=== PATIENT | female | born 2000 | race Caucasian/White ===

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

== ENCOUNTER 2018-01-29 10:16 | Emergency (ER) | payer OTHER, MEDICAID ==
[2018-01-29 10:56] VITALS: BP 125/74
--- NOTE | 2018-01-29 10:58 | UC ---
Skin Complaint HPI - HPI Summary HPI Summary: 17 y/o female presents to the urgent care c/o insect bite between her eyebrows she noticed this morning when she woke up. Now is red and painful to touch. Pt w/ HX of MRSA and anxiety. Pain is 8/10 and warm to touch and mildly swollen. Pt has applied warm compresses. She was Dx w/ UTI 2 days ago and Rx Macrobid PO which she started yesterday. Pt has a 3 month old baby at home and she is not breast feeding. Pt denies fever, VIDES, SOB, chest pain, visual disturbances, photophobia, abdominal pain, N/V/D. Pt is UTD w/. all vaccines for her age. - History of Current Complaint Chief Complaint: UCSkin Time Seen by Provider: 01/29/18 10:56 Stated Complaint: POSS BUG BITE Hx Obtained From: Patient Hx Last Menstrual Period: 01/13/18 Onset/Duration: Sudden Onset, Lasting Days - 1 day, Still Present, Worse Since - this morning Skin Exposure Onset/Duration: Days Ago - 1 day Timing: Constant Onset Severity: Mild Current Severity: Moderate Pain Intensity: 8 Pain Scale Used: 0-10 Numeric Location: Discrete - between eyebrows infected insec bite Character: Swelling, Redness, Raised, Painful Aggravating Factor(s): Touch Alleviating Factor(s): Nothing Associated Signs & Symptoms: Positive: Rash, Tenderness. Negative: Fever, Chills, Drainage Related History: Possible Reaction to: Insect - Allergy/Home Medications Allergies/Adverse Reactions: Allergies Allergy/AdvReac Type Severity Reaction Status Date / Time amoxicillin Allergy Intermediate Hives Verified 01/29/18 10:44 Review of Systems Constitutional: Negative Skin: Rash - insect bite between eyebrows Eyes: Negative ENT: Negative Respiratory: Negative Cardiovascular: Negative Gastrointestinal: Negative Genitourinary: Negative Motor: Negative Neurovascular: Negative Musculoskeletal: Negative Neurological: Negative Psychological: Negative Is Patient Immunocompromised?: No All Other Systems Reviewed And Are Negative: Yes PMH/Surg Hx/FS Hx/Imm Hx - Additional Past Medical History Additional PMH: Hx of MRSA Previously Healthy: Yes Other Endocrine History: Gestational DM Psychological History: Anxiety, Depression Other History Of: Negative For: HIV, Hepatitis B, Hepatitis C - Surgical History Surgical History: Yes Surgery Procedure, Year, and Place: TONSILLECTOMY -NOVEMBER 2013. APPENDECTOMY 02/01 - Family History Known Family History: Positive: Hypertension, Diabetes - Social History Occupation: Unemployed Lives: With Family Alcohol Use: None Substance Use Type: None Smoking Status (MU): Never Smoked Tobacco Type: Smokeless Tobacco Amount Used/How Often: daily usage Length of Time of Smoking/Using Tobacco: started at age 14 Have You Smoked in the Last Year: No When Did the Patient Quit Smoking/Using Tobacco: quit chewing tabacco Household Exposure Type: Cigarettes - Immunization History Vaccination Up to Date: Yes Physical Exam - Summary Physical Exam Summary: Vital Signs Reviewed: Yes General: well developed, well nourished female sitting in the examining table w/ o any apparent distress. Eyes: Positive: Conjunctiva Clear - PERRLA, EOMI ENT: Positive: Normal ENT inspection, Hearing grossly normal, Pharynx normal, TMs normal Neck: Positive: Supple, Nontender, No Lymphadenopathy Respiratory: Positive: Chest nontender, Lungs clear, Normal breath sounds Cardiovascular: Positive: RRR, No Murmur, Pulses Normal Abdomen Description: Positive: Nontender, No Organomegaly, Soft. Negative: CVA Tenderness (R), CVA Tenderness (L) Bowel Sounds: Positive: Present Musculoskeletal: Positive: Strength Intact, ROM Intact, No Edema Neurological Exam: Normal Psychological Exam: Normal Skin: Positive: rashes - small erythematous patch w/ indistinct borders, warm to touch between eyebrows w/ central induration and mild crusting s/p insect bite about 0.8cmx 0.6cm in size, swelling and tender to palpation. No drainage observed. Triage Information Reviewed: Yes Vital Signs: Initial Vital Signs Temp 98.5 F 01/29/18 10:50 Pulse 96 01/29/18 10:50 Resp 18 01/29/18 10:50 BP 125/74 01/29/18 10:50 Pulse Ox 99 01/29/18 10:50 Course/Dx - Course Course Of Treatment: 17 y/o female presents to the urgent care c/o insect bite between her eyebrows she noticed this morning when she woke up. Now is red and painful to touch. Pt w/ HX of MRSA and anxiety. Pain is 8/10 and warm to touch and mildly swollen. Pt has applied warm compresses. She was Dx w/ UTI 2 days ago and Rx Macrobid PO which she started yesterday. Pt has a 3 month old baby at home and she is not breast feeding. Pt denies fever, VIDES, SOB, chest pain, visual disturbances, photophobia, abdominal pain, N/V/D. Pt is UTD w/. all vaccines for her age.Hx obtained. Pt w/ small erythematous patch w/ indistinct borders, warm to touch between eyebrows w/ central induration and mild crusting s/p insect bite about 0.8cmx 0.6cm in size, swelling and tender to palpation. No drainage observed on examination. PT w/ mild Cellulitis of forehead s/p insect bite. Pt Rx Bactrim PO since Hx of MRSA and advised to stop taking Macrobid PO, Also advised to applied topical Bacitracin. Advised if rash doubles in size and if she develops fever to go to the ER for further treatment. [place] hand washing since she has a baby at home to avoid spread. D /C instructions explained. Pt understood and agreed w/ plan of care. - Differential Diagnoses - Skin Complaint Differential Diagnoses: Abscess, Cellulitis, MRSA, Tick Born Illness, Other - insect bite, bee sting - Diagnoses Provider Diagnoses: 1- Forehead cellulitis s/p insect bite Discharge - Sign-Out/Discharge Documenting (check all that apply): Discharge/Admit/Transfer - D/C home - Discharge Plan Condition: Stable Disposition: HOME Prescriptions: Bacitracin OINTMENT* 1 applic TOPICAL BID #1 tube Sulfamethox/Trimethoprim DS* [Bactrim DS 800/160 TAB*] 1 tab PO BID #20 tab Patient Education Materials: Cellulitis (ED), Insect Bite or Sting (ED) Referrals: Jody Mena MD [Primary Care Provider] - 3 Days Additional Instructions: 1-Please stop taking the Macrobid PO for your UTI and start taking Bactrim PO and take full course of Antibiotic. Apply Bacitracin oint as directed on affected area. apply warm compresses in the area 2- If redness and swelling doubles in size beyond what was demarcated after 48 hrs of taking antibiotic and fever develops please go to the ER immediately. 3- Encourage hand washing to avoid spread. 4-Please F/u with your PCP in 2 days for further evaluation and treatment. - Billing Disposition and Condition Condition: STABLE Disposition: Home
== END 2018-01-29 11:30 | disposition home or self-care (01) ==
LOC: UCCORT 10:16
DX: S00.86XA Insect bite (nonvenomous) of other part of head, initial encounter (principal); W57.XXXA Bitten or stung by nonvenomous insect and other nonvenomous arthropods, initial encounter; Z88.0 Allergy status to penicillin; Y92.9 Unspecified place or not applicable
CPT/HCPCS: 99212; G0463

== ENCOUNTER 2018-04-06 10:58 | Emergency (ER) | payer OTHER ==
[2018-04-06 11:22] VITALS: BP 130/74
--- NOTE | 2018-04-06 11:27 | UC ---
UC General HPI - HPI Summary HPI Summary: cough, congestion since last pm. had a streak og blood in sputum. no cp, sob or fever. - History of Current Complaint Chief Complaint: UCRespiratory Stated Complaint: COUGH/SINUSCOMPLAINT Time Seen by Provider: 04/06/18 11:10 Hx Obtained From: Patient Hx Last Menstrual Period: 01/13/18 Onset/Duration: Gradual Onset Timing: Constant Aggravating: nothing Associated Signs & Symptoms: Positive: Cough - Allergy/Home Medications Allergies/Adverse Reactions: Allergies Allergy/AdvReac Type Severity Reaction Status Date / Time amoxicillin Allergy Intermediate Hives Verified 04/06/18 11:11 Home Medications: Home Medications Naproxen TAB* [Naprosyn 250 mg TAB*] 1 tab BID PRN 04/06/18 [History Confirmed 04/06/18] lamoTRIgine TAB(*) [Lamictal TAB(*)] 200 mg DAILY 04/06/18 [History Confirmed ] PMH/Surg Hx/FS Hx/Imm Hx Psychological History: Anxiety, Depression, Bipolar Disorder Other History Of: Negative For: HIV, Hepatitis B, Hepatitis C - Surgical History Surgical History: Yes Surgery Procedure, Year, and Place: TONSILLECTOMY -NOVEMBER 2013. APPENDECTOMY 02/01 - Family History Known Family History: Positive: None, Hypertension, Diabetes - Social History Occupation: Employed Full-time Lives: With Family Alcohol Use: None Substance Use Type: None Smoking Status (MU): Never Smoked Tobacco Type: Smokeless Tobacco Amount Used/How Often: daily usage Length of Time of Smoking/Using Tobacco: started at age 14 Have You Smoked in the Last Year: No When Did the Patient Quit Smoking/Using Tobacco: quit chewing tabacco Household Exposure Type: Cigarettes - Immunization History Vaccination Up to Date: Yes Review of Systems Constitutional: Negative Skin: Negative Eyes: Negative ENT: Negative Respiratory: Cough Cardiovascular: Negative Gastrointestinal: Negative Genitourinary: Negative Motor: Negative Neurovascular: Negative Musculoskeletal: Negative Neurological: Negative Psychological: Negative Is Patient Immunocompromised?: No All Other Systems Reviewed And Are Negative: Yes Physical Exam Triage Information Reviewed: Yes Appearance: Well-Appearing Vital Signs Reviewed: Yes Eyes: Positive: Conjunctiva Clear ENT: Positive: Pharynx normal, TMs normal. Negative: Nasal congestion, Nasal drainage Neck: Positive: Supple, Nontender, No Lymphadenopathy Respiratory: Positive: Lungs clear, Normal breath sounds, No respiratory distress Cardiovascular: Positive: RRR, No Murmur Abdomen Description: Positive: Nontender, No Organomegaly, Soft Bowel Sounds: Positive: Present Musculoskeletal: Positive: ROM Intact Neurological: Positive: Alert Psychological: Positive: Age Appropriate Behavior Skin Exam: Normal Course/Dx - Course Course Of Treatment: nothing to suggest pneumonia - Differential Dx - Multi-Symptom Provider Diagnoses: bronchitis Discharge - Sign-Out/Discharge Documenting (check all that apply): Patient Departure - Discharge Plan Condition: Stable Disposition: HOME Patient Education Materials: Acute Bronchitis (ED) Forms: *Work Release Referrals: Jody Mena MD [Primary Care Provider] - 7 Days - Billing Disposition and Condition Condition: STABLE Disposition: Home
== END 2018-04-06 11:41 | disposition home or self-care (01) ==
LOC: UCCORT 10:58
DX: J40 Bronchitis, not specified as acute or chronic (principal); F17.210 Nicotine dependence, cigarettes, uncomplicated; Z87.891 Personal history of nicotine dependence; Z88.1 Allergy status to other antibiotic agents
CPT/HCPCS: 99211; G0463

== ENCOUNTER 2018-05-15 11:56 | Emergency (ER) | payer OTHER ==
--- OUTSIDE RECORDS SUMMARY | 2018-05-15 12:10 | XMS REPORT ---
:2000 External Reference #:[id number] Author Organization [facility] 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 Jody Mena MD Primary Care Physician Unavailable Payers Type Date Identification Numbers Payment Provider Subscriber Commercial Policy Number: [id number] [place] [employer] Bernard Boothe PayID: [id number] [address] [place] [address] Medicaid Expires: 2018 Group Name: [facility] 35 Medicaid Sukhjinder Boothe PayID: [id number] [address] [place] [address] Problems Date Description Provider Status Onset: 04/17/2018 Heartburn Rehan Hodge MD Active Onset: 04/17/2018 Digestive symptom Rehan Hodge MD Active Onset: 04/17/2018 Abdominal pain Rehan Hodge MD Active Family History Date Family Member(s) Problem(s) Comments General Non Contributory Social History Type Date Description Comments Marital Status Single Home Environment Lives With parents 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 Smokeless Tobacco Current Smokeless Tobacco User, Uses 3 Times Daily ETOH Use Denies alcohol use Smoking Patient has never smoked Recreational Drug Use Denies Drug Use Daily Caffeine Consumes on average 5 cups of regular coffee per day Allergies, Adverse Reactions, Alerts Date Description Reaction Status Severity Comments 04/08/2018 Amoxicillin active 02/02/2014 NKDA inactive Medications Medication Date Status Form Strength Qnty SIG Indications Ordering Provider Omeprazole 04/17/ Active Capsules 20mg 90caps 1 tab by R11.[address], MD every day every morning Dicyclomine HCL 04/17/ Active Capsules 10mg 30caps 1 cap by R10.9 Rehan Hodge, 2018 mouth MD three times a day as needed Lamotrigine ER / Active Tablets ER 200mg 1 po Unknown 0000 24HR daily Depo-Provera / Hx 1 dose im Unknown Contraceptive 0000 - x once q month 2017 Ranitidine 150 / Hx Tablets 150mg 1 by Unknown Maximum Strength 0000 - mouth bid 2017 Ondansetron HCL / Hx Tablets 8mg take 1 Unknown 0000 - tablet by 2018 every 8 hours as needed for nausea Benzamycin / Hx Gel 5-3% A/D Unknown 0000 - 2017 Vital Signs Date Vital Result Comment 04/17/2018 BP Systolic Sitting Left Arm 112 mmHg BP Diastolic Sitting Left Arm 78 mmHg Heart Rate 100 /min Respiratory Rate 16 /min Height 59 inches 4'11" Weight 188.00 lb BMI (Body Mass Index) 38.0 kg/m2 BSA (Body Surface Area) 1.80 m2 Jones body weight in kilograms 45 Results Test Date Test Result H/L Range Note Basic Metabolic Panel 04/17/2018 Glucose 73 mg/dL Low 74-106 BUN 8 mg/dL 7-18 Creatinine 0.6 mg/dL 0.6-1.3 Glom Filtration Rate, Estimate >60 mL/min >60 If >60 mL/min >60 1 BUN/Creat 13.3 ratio Sodium 138 mmol/L 136-145 Potassium 4.1 mmol/L 3.5-5.1 Chloride 107 mmol/L 98-107 Carbon Dioxide 24 mmol/L 21-32 Anion Gap 7 mEq/L Low 8-16 Calcium 8.9 mg/dL 8.5-10.1 Reflex add FT3? N Reflex add FT4? Y Laboratory test finding 04/17/2018 Sedimentation Rate 16 mm/hr 0-20 2 TSH Reflex FT4 And/Or FT3 04/17/2018 Thyroid Stim Hormone 2.20 uIU/mL 0.30-4.20 Reflex add FT3? N Reflex add FT4? Y C-Reactive Protein,Quant 04/17/2018 C-Reactive Protein,Quant 4.8 mg/L High <3.0 Reflex add FT3? N Reflex add FT4? Y Ua RFX Micro & Culture II 10/13/2017 Urine Color STRAW Yellow 3 Urine Clarity SL CLOUDY Clear 3 Urine Glucose - Dipstick NEGATIVE mg/dL Negative 3 Urine Bilirubin - Dipstick NEGATIVE Negative 3 Urine Ketone NEGATIVE mg/dL Negative 3 Urine Specific Franklin 1.010 1.010-1.030 3 Urine Blood NEGATIVE Negative 3 Urine PH 7.0 6.5-7.5 3 Urine Protein - Dipstick NEGATIVE mg/dL Negative 3 Urine Urobilinogen - Dipstick 0.2 E.U./dL 0.2-1.0 3 Urine Nitrite - Dipstick NEGATIVE Negative 3 Urine Leuk Esterase SMALL Negative 3 Urine RBC NONE SEEN rbc/hpf 0-2 3 Urine WBC 0-2 wbc/hpf 0-7 3 Urine Epithelial Cells MANY /lpf None Seen 3, 4 Urine Bacteria FEW None Seen 3 Source: URINE, CLEAN CAT <SEE NOTE> 3, 5 Urine Culture 10/13/2017 Urine Culture URETHRAL CHARAN 3 Quantity > 100,000 CFU/mL 3, 6 Ua RFX Micro & Culture II 09/15/2017 Urine Color YELLOW Yellow 7 Urine Clarity CLEAR Clear 7 Urine Glucose - Dipstick NEGATIVE mg/dL Negative 7 Urine Bilirubin - Dipstick NEGATIVE Negative 7 Urine Ketone NEGATIVE mg/dL Negative 7 Urine Specific Franklin 1.010 1.010-1.030 7 Urine Blood NEGATIVE Negative 7 Urine PH 6.0 Low 6.5-7.5 7 Urine Protein - Dipstick TRACE mg/dL Negative 7 Urine Urobilinogen - Dipstick 0.2 E.U./dL 0.2-1.0 7 Urine Nitrite - Dipstick NEGATIVE Negative 7 Urine Leuk Esterase TRACE Negative 7 Urine RBC 0-2 rbc/hpf 0-2 7 Urine WBC 2-5 wbc/hpf 0-7 7 Urine Epithelial Cells MODERATE /lpf None Seen 7, 8 Urine Bacteria FEW None Seen 7 Source: URINE, CLEAN CAT <SEE NOTE> 7, 9 Genital Culture W/ Gram 09/15/2017 Gram Stain GRAM STAIN INDIC <SEE 7, 10 Stain NOTE> Gram Stain MODERATE GR POS. <SEE NOTE> 7, 11 Gram Stain RARE WHITE BLOOD <SEE NOTE> 7, 12 Genital Culture GENITAL CHARAN 7 Urine Culture And Sensitivities 05/25/2014 Urine Culture (See Note) 13 Laboratory test finding 02/13/2014 Bas% 0.3 % 0.0-1.1 Baso # 0.05 K/uL 0.0-0.1 Eo% 0.4 % 0.0-6.6 Eos # 0.07 K/uL 0.0-0.5 Hematocrit 36.8 % 36.0-46.0 Hemoglobin 12.3 gm/dL 12.0-16.0 Lymph # 2.93 K/uL 0.8-3.4 Lymph % 18.5 % 17.0-46.1 Mean Cell Volume 92.2 fl 77.0-95.0 Mean Corpuscular HGB 30.8 pg High 25.0-30.0 Mean Corpuscular HGB Conc 33.4 g/dL 30.8-34.3 Mean Platelet Volume 9.8 fL 8.9-12.4 [place] # 1.05 K/uL High 0.0-0.6 [place] % 6.6 % 4.3-13.2 Neut# 11.78 K/uL High 1.0-7.0 Neut% 74.2 % High 28.0-68.0 Platelet Count 303 K/uL 155-360 Red Blood Count 3.99 M/uL Low 4.10-5.10 Red Cell Distri Width %CV 12.2 % 11.7-14.4 Red Cell Distri Width SD 40.4 fl 3-47 White Blood Count 15.9 K/uL High 4.5-13.5 Basic Metabolic Panel 02/13/2014 Anion Gap 12 mEq/L 8-16 BUN 11 mg/dL 5-23 BUN/Creat 15.7 ratio Calcium 9.4 mg/dL 8.5-10.1 Carbon Dioxide 23 mEq/L 18-29 Chloride 108 mmol/L High 98-107 Creatinine 0.7 mg/dL 0.5-1.4 Glom Filtration Rate, Estimate >60 mL/min Glucose 90 mg/dL 76-115 If >60 mL/min Potassium 3.6 mmol/L 3.5-5.1 Sodium 139 mmol/L 136-145 CBC Auto Diff 02/13/2014 Abs Basophils 0.1 10^3/uL 0-0.2 Abs Eosinophils 0.1 10^3/uL 0-0.6 Abs Lymphocytes 2.3 10^3/uL 1.0-4.8 Abs Monocytes 1.0 10^3/uL High 0-0.8 Abs Neutrophils 11.1 10^3/uL High 1.5-7.7 Abs Nucleated RBC 0.01 10^3/uL Basophil % 0.6 % 0-2 Eosinophil % 0.5 % 0-6 Granulocyte % 76.0 % 38-83 Hematocrit 35 % 35-47 Hemoglobin 12.0 g/dL 12.0-16.0 Lymphocyte % 16.0 % Low 25-47 Mean Corpuscular HGB Conc 34 g/dL 31-36 Mean Corpuscular Hemoglobin 31 pg 27-31 Mean Corpuscular Volume 91 fL 80-97 Mean Platelet Volume 8 um3 7.4-10.4 Monocyte % 6.9 % 1-9 Nucleated Red Blood Cells % 0 Platelet Count 282 10^3/uL 150-450 Red Blood Count 3.90 10^6/uL Low 4.0-5.4 Red Cell Distribution Width 13 % 10.5-15 White Blood Count 14.6 10^3/uL High 4.8-10.8 Laboratory test finding 02/01/2014 Appendix Inflammation See Note 14 Laboratory test finding 02/01/2014 Urine HCG (Qualitative) See Note 15 Urine Screen 02/01/2014 Urine Bilirubin - Dipstick Negative Negative Urine Blood Trace Negative Urine Clarity Clear Clear Urine Color Yellow Yellow Urine Glucose - Dipstick Negative mg/dL Negative Urine Ketone Trace mg/dL High Negative Urine Leuk Esterase Negative Negative Urine Nitrite - Dipstick Negative Negative Urine PH 6.0 Low 6.5-7.5 Urine Protein - Dipstick Negative mg/dL Negative Urine Specific Franklin 1.020 1.010-1.030 Urine Urobilinogen - Dipstick 0.2 E.U./dL 0.2-1.0 Chlamydia/GC Maria L, Urine 02/01/2014 Chlamydia Trachomatis,Ur Negative Negative -Maria L Neisseria Gonorrhoeae,Ur -Maria L Negative Negative Urine note: See Note 16 Laboratory test finding 02/01/2014 Bas% 0.2 % 0.0-1.1 Baso # 0.04 K/uL 0.0-0.1 Eo% 0.2 % 0.0-6.6 Eos # 0.03 K/uL 0.0-0.5 HCG Serum, Qualitative Negative Hematocrit 40.5 % 36.0-46.0 Hemoglobin 13.7 gm/dL 12.0-16.0 Lymph # 1.28 K/uL 0.8-3.4 Lymph % 7.6 % Low 17.0-46.1 Mean Cell Volume 92.5 fl 77.0-95.0 Mean Corpuscular HGB 31.3 pg High 25.0-30.0 Mean Corpuscular HGB Conc 33.8 g/dL 30.8-34.3 Mean Platelet Volume 10.9 fL 8.9-12.4 [place] # 1.07 K/uL High 0.0-0.6 [place] % 6.3 % 4.3-13.2 Neut# 14.53 K/uL High 1.0-7.0 Neut% 85.7 % High 28.0-68.0 Platelet Count 242 K/uL 155-360 Red Blood Count 4.38 M/uL 4.10-5.10 Red Cell Distri Width %CV 12.6 % 11.7-14.4 Red Cell Distri Width SD 41.7 fl 3-47 White Blood Count 17.0 K/uL High 4.5-13.5 Comprehensive Metabolic Panel 02/01/2014 Alb/Glob 1.1 ratio Albumin 4.2 g/dL 3.5-5.0 Alkaline Phosphatase 84 U/L 50-136 Anion Gap 12 mEq/L 8-16 BUN 9 mg/dL 5-23 BUN/Creat 15.0 ratio Bilirubin,Total 0.4 mg/dL 0.2-1.2 Calcium 9.3 mg/dL 8.5-10.1 Carbon Dioxide 22 mEq/L 18-29 Chloride 105 mmol/L 98-107 Creatinine 0.6 mg/dL 0.5-1.4 Globulin 3.8 g/dL 1.9-4.3 Glom Filtration Rate, Estimate >60 mL/min Glucose 77 mg/dL 76-115 If >60 mL/min Potassium 3.7 mmol/L 3.5-5.1 SGPT/Alt 23 U/L Low 30-65 Sgot/Ast 19 U/L 16-40 Sodium 135 mmol/L Low 136-145 Total Protein 8.0 g/dL 6.3-8.0 Urine Culture And Sensitivities 11/04/2013 Urine Culture (See Note) 17 C Trach/N Gonorr Patient <16 11/04/2013 C trachomatis Source [facility] Chlamydia trachomatis Rna Negative Negative N. gonorrhoeae Source [facility] Neisseria Gonorrhoeae Rna Negative Negative 18 Affirm Vaginal Dna Probe 11/04/2013 Affirm Vaginal Dna Probe (See Note) 19 Herpes Simplex PCR 11/04/2013 HSV 1 PCR Negative Negative HSV 2 PCR Negative Negative 20 Herpes Source Labia Urine Screen 10/01/2013 Urine Bilirubin - Dipstick Negative Negative Urine Blood Negative Negative Urine Clarity Clear Clear Urine Color Yellow Yellow Urine Glucose - Dipstick Negative mg/dL Negative Urine Ketone Negative mg/dL Negative Urine Leuk Esterase Negative Negative Urine Nitrite - Dipstick Negative Negative Urine PH 6.0 Low 6.5-7.5 Urine Protein - Dipstick Negative mg/dL Negative Urine Specific Franklin 1.020 1.010-1.030 Urine Urobilinogen - Dipstick 0.2 E.U./dL 0.2-1.0 Laboratory test finding 10/01/2013 Urine HCG (Qualitative) Negative Negative 21 Comprehensive Metabolic 07/07/2013 Alb/Glob 1.1 ratio Panel Albumin 4.1 g/dL 3.5-5.0 Alkaline Phosphatase 59 U/L 50-136 Anion Gap 11 mEq/L 8-16 BUN 12 mg/dL 5-23 BUN/Creat 17.1 ratio Bilirubin,Total 0.1 mg/dL Low 0.2-1.2 Calcium 8.9 mg/dL 8.5-10.1 Carbon Dioxide 24 mEq/L 18-29 Chloride 109 mmol/L High 98-107 Creatinine 0.7 mg/dL 0.5-1.4 Globulin 3.6 g/dL 1.9-4.3 Glom Filtration Rate, Estimate >60 mL/min Glucose 87 mg/dL 76-115 If >60 mL/min Potassium 3.6 mmol/L 3.5-5.1 SGPT/Alt 23 U/L Low 30-65 Sgot/Ast 15 U/L Low 16-40 Sodium 140 mmol/L 136-145 Total Protein 7.7 g/dL 6.3-8.0 Urine Screen 07/07/2013 Urine Bilirubin - Dipstick Negative Negative Urine Blood Negative Negative Urine Clarity Clear Clear Urine Color Yellow Yellow Urine Glucose - Dipstick Negative mg/dL Negative Urine Ketone Negative mg/dL Negative Urine Leuk Esterase Negative Negative Urine Nitrite - Dipstick Negative Negative Urine PH 6.0 Low 6.5-7.5 Urine Protein - Dipstick Negative mg/dL Negative Urine Specific Franklin 1.010 1.010-1.030 Urine Urobilinogen - Dipstick 0.2 E.U./dL 0.2-1.0 Laboratory test finding 07/07/2013 Amphetamines (Urine) Negative Barbiturates (Urine) Negative Benzodiazepines (Urine) Negative Cannabinoids (Urine) Negative Cocaine Metabolite (Urine) Negative Methadone (Urine) Negative Opiates (Urine) Negative Urine Cutoffs * 22 Laboratory test finding 07/07/2013 Bas% 1.1 % 0.0-1.1 Baso # 0.10 K/uL 0.0-0.1 Eo% 4.4 % 0.0-6.6 Eos # 0.42 K/uL 0.0-0.5 Hematocrit 36.7 % 36.0-46.0 Hemoglobin 12.3 gm/dL 12.0-16.0 Lymph # 3.54 K/uL High 0.8-3.4 Lymph % 37.4 % 17.0-46.1 Mean Cell Volume 92.9 fl 77.0-95.0 Mean Corpuscular HGB 31.1 pg High 25.0-30.0 Mean Corpuscular HGB Conc 33.5 g/dL 30.8-34.3 Mean Platelet Volume 10.2 fL 8.9-12.4 [place] # 0.71 K/uL High 0.0-0.6 [place] % 7.5 % 4.3-13.2 Neut# 4.69 K/uL 1.0-7.0 Neut% 49.6 % 28.0-68.0 Platelet Count 298 K/uL 155-360 Red Blood Count 3.95 M/uL Low 4.10-5.10 Red Cell Distri Width %CV 12.4 % 11.7-14.4 Red Cell Distri Width SD 40.9 fl 3-47 Thyroid Stim Hormone 2.30 uIU/mL 0.49-4.67 Urine HCG (Qualitative) Negative Negative 23 White Blood Count 9.5 K/uL 4.5-13.5 Laboratory test finding 05/25/2013 Culture If Indicated Comment See Note 24 Urine Culture See Note 25 Urine HCG (Qualitative) Negative Negative 26 Urine Screen See Note 27 Urinalysis With Microscopic 05/25/2013 Urine Bacteria Few None Seen Urine Bilirubin - Dipstick Negative Negative Urine Blood Moderate High Negative Urine Clarity Clear Clear Urine Color DK Yellow Yellow Urine Epithelial Cells Very Few None Seen /lpf Urine Glucose - Dipstick 100 mg/dL High Negative Urine Ketone Negative mg/dL Negative Urine Leuk Esterase Moderate High Negative Urine Nitrite - Dipstick Positive High Negative Urine PH 7.0 6.5-7.5 Urine Protein - Dipstick Negative mg/dL Negative Urine RBC 0-2 rbc/hpf 0-7 Urine Specific Franklin <=1.005 Low 1.010-1.030 Urine Urobilinogen - Dipstick 1.0 E.U./dL 0.2-1.0 Urine WBC 0-2 wbc/hpf 0-7 Laboratory test finding 05/24/2013 Urine HCG (Qualitative) Negative Negative 28 Urine Screen See Note 29 Urinalysis With Microscopic 05/24/2013 Urine Bacteria Very Few None Seen Urine Bilirubin - Dipstick Negative Negative Urine Blood Negative Negative Urine Clarity Clear Clear Urine Color Yellow Yellow Urine Epithelial Cells Moderate None Seen /lpf 30 Urine Glucose - Dipstick Negative mg/dL Negative Urine Ketone Negative mg/dL Negative Urine Leuk Esterase Small High Negative Urine Nitrite - Dipstick Negative Negative Urine PH 6.0 Low 6.5-7.5 Urine Protein - Dipstick Negative mg/dL Negative Urine RBC None Seen rbc/hpf 0-7 Urine Specific Franklin 1.025 1.010-1.030 Urine Urobilinogen - Dipstick 0.2 E.U./dL 0.2-1.0 Urine WBC 0-2 wbc/hpf 0-7 Urine Culture And 05/24/2013 Urine Culture (See Note) 31 Sensitivities Urine Screen 07/28/2012 Urine Bilirubin - Negative Negative Dipstick Urine Blood Trace Negative Urine Clarity SL Cloudy Clear Urine Color Yellow Yellow Urine Glucose - Dipstick Negative mg/dL Negative Urine Ketone Negative mg/dL Negative Urine Leuk Esterase Negative Negative Urine Nitrite - Dipstick Negative Negative Urine PH 5.5 Low 6.5-7.5 Urine Protein - Dipstick Negative mg/dL Negative Urine Specific Franklin >=1.030 1.010-1.030 Urine Urobilinogen - Dipstick 0.2 E.U./dL 0.2-1.0 1 Note: Persistent reduction for 3 months or more in an eGFR <60 mL/min/1.73 m2 defines CKD. Patients with eGFR values >/=60 mL/min/1.73 m2 may also have CKD if evidence of persistent proteinuria is present. The original MDRD equation for estimated GFR is not valid for patients less than 18 years of age. Additional information may be found at www.kdoqi.org. 2 Method: Sediplast Modified Westergren 3 BABY IN DISTRESS 4 POSSIBLE UROGENITAL CONTAMINATION. 5 URINE, CLEAN CATCH 6 > 100,000 CFU/mL 7 31 WEEKS, ABD PAIN, DISCHARGE 8 POSSIBLE UROGENITAL CONTAMINATION. 9 URINE, CLEAN CATCH 10 GRAM STAIN INDICATES NORMAL GENITAL CHARAN 11 MODERATE GR POS. BACILLI SUGGESTIVE OF LACTOBACILLUS SP. 12 RARE WHITE BLOOD CELLS 13 RUN DATE: 05/27/14 [facility] LAB LIVE PAGE 1 RUN TIME: [address] [place] [address] Specimen Inquiry ----- Name: BERNARD BOOTHE : [address]: Kurtis Baig MD Acct: [id number] Unit: [id number] AGE: 14 Location: [facility] Re05/25/14 SEX: F Status: DEP ER ----- SPEC: [id number] CARLI: 05/25/14 [facility] DR: Kurtis Baig MD REQ: [id number] RECD: 05/25/144 STATUS: CRAIG ROCHE DR: Patricia Cazares MD _ SOURCE: URINE SPDESC: ORDERED: Urine Culture ----- Procedure Result Verified Site ----- Urine Culture Final 05/27/14-1031 ML Organism 1 NORMAL CHARAN [place] Count 1-10,000 (Few) CFU/ML ----- END OF REPORT * ML=Testing performed at Main Lab DEPARTMENT OF PATHOLOGY, [address] [place] [address] Teto Gabriel M.D. Director [facility] # [id number] OPERATION/PROCEDURE Lap. appendectomy DIAGNOSIS: FINAL REPORT, INTERNAL REVIEW COMPLETED "APPENDIX, APPENDECTOMY": ACUTE APPENDICITIS, EARLY. BEAL/EDWARD/josh GROSS Received in formalin labeled, "APPENDIX" is a 3.8 cm. vermiform appendix with a diameter up to 0.5 cm. The serosal surface of the appendix is focally congested without evidence of purulent exudate. The mesoappendix measures up to 1.4 cm. in width and 4.8 cm. in thickness. Upon further sectioning the lumen contains focal hemorrhagic material. No fecalith nor tumor is seen. Submitted in toto in one block. BELA/josh MICROSCOPIC Sections reveal sheets of luminal neutrophils focally eroding into the epithelium of the terminal appendix, without evidence of perforation. Lymphoid follicles are hypertrophied. The serosal vessels are congested without an exudate. PRE OPERATIVE DIAGNOSIS [facility] pain REVIEW CODE CODE: I Signed Electronically signed REJI LEMUS MD [id number] Electronically signed REGGIE LUBIN MD 02/06/14 3417 15 02/01/14 LAB.TOW PER [facility] REQ 16 Acceptable specimens for this test are male urethral swab, endocervical swab and liquid based pap specimens, vaginal swabs in APTIMA transports and first void urine. See online Directory of Services for test number for rectal and pharyngeal specimens. Performed at: RN - [facility] [address] [id number] Glue Spreader: Sheyla Barrera MD, Phone: [phone] RUN DATE: 11/07/13 [facility] LAB LIVE PAGE 1 RUN TIME: [address] [place] [address] Specimen Inquiry ----- Name: BERNARD BOOTHE DOB: [address]: Karla Triana MD Acct: [id number] Unit: [id number] AGE: 13 Location: [facility] Re11/04/13 SEX: F Status: DEP ER ----- SPEC: [id number] CARLI: 11/04/13-[address]: Karla Triana MD REQ: [id number] RECD: 11/05/13 STATUS: CRAIG ROCHE DR: Patricia Cazares MD _ SOURCE: URINE SPDESC: ORDERED: Urine Culture ----- Procedure Result Verified Site ----- Urine Culture Final 11/07/13-924 ML Organism 1 NORMAL CHARAN [place] Count 10-25,000 (Moderate) CFU/ML ----- END OF REPORT * ML=Testing performed at Main Lab DEPARTMENT OF PATHOLOGY, [facility] [employer] [place], [place] [address] Teto Gabriel M.D. Director [facility] Permit # [id number] 18 Test Performed by: [address] [address] Household Chores: Jagdish Engel III, M.D. RUN DATE: 11/05/13 [facility] LAB LIVE PAGE 1 RUN TIME: [address] [facility] [employer] [place], [place] [address] Specimen Inquiry ----- Name: BERNARD BOOTHE : [address]: Karla Triana MD Acct: [id number] Unit: [id number] AGE: 13 Location: [facility] Re11/04/13 SEX: F Status: DEP ER ----- SPEC: [id number] CARLI: 11/04/13-2029 [facility] DR: Karla Triana MD REQ: [id number] RECD: 11/05/13 STATUS: COMP OTHR DR: Patricia Cazares MD _ SOURCE: VAGINAL SPDESC: ORDERED: Affirm ----- Procedure Result Verified Site ----- Affirm Vaginal DNA Probe Final 11/05/13-1238 ML Organism 1 Negative Trichomonas Organism 2 Negative Gardnerella Organism 3 Negative Radha The presence of G. vaginalis, although suggestive, is not diagnostic for bacterial vaginosis. Results should be interpreted in conjunction with other clinical and laboratory data available. Women with vaginal discharge should be evaluated for risk factors of cervicitis and pelvic inflammatory disease, toxic shock syndrome (S.aureus), and if present, evaluated for organisms not included in this assay such as N. gonorrhoeae, C. trachomatis, Mobiluncus, Mycoplasma and/or Prevotella. Mixed infections may occur. The performance of this test on patient specimens collected during or immediately after antimicrobial therapy is unknown. The presence or absence of Radha species, G. vaginalis or T. vaginalis cannot be used as a test for therapeutic success or failure. ----- END OF REPORT * ML=Testing performed at Main Lab DEPARTMENT OF PATHOLOGY, [address] [place] [address] Teto Gabriel M.D. Director [facility] Permit # [id number] 20 Analyte Specific Reagent: This test was developed and its performance characteristics determined by [facility]. It has not been cleared or approved by the U.S. Food and Drug Administration. Test Performed by: [facility] - [address] [address] Household Chores: Jagdish Engel III, M.D. 21 FIRST MORNING SPECIMENS GENERALLY CONTAIN THE HIGHEST CONCENTRATION OF HCG AND ARE RECOMMENDED FOR EARLY DETECTION OF . 22 *THE SUBMITTED URINE SPECIMEN WAS SCREENED AT THE LISTED [facility] CLASS INITIAL TEST LEVEL Amphetamines 1000 ng/mL Barbiturates 200 ng/mL Benzodiazepines 200 ng/mL Cannabinoids 50 ng/mL Cocaine Metabolite 300 ng/mL Methadone 300 ng /mL Opiates 300 ng/mL 23 FIRST MORNING SPECIMENS GENERALLY CONTAIN THE HIGHEST CONCENTRATION OF HCG AND ARE RECOMMENDED FOR EARLY DETECTION OF . 24 CULTURE TO FOLLOW 25 COLONY COUNT ! 10,000 - 20,000 CFU/ml Organism 1 ! MIXED URETHRAL CHARAN 26 FIRST MORNING SPECIMENS GENERALLY CONTAIN THE HIGHEST CONCENTRATION OF HCG AND ARE RECOMMENDED FOR EARLY DETECTION OF . 27 05/25/13 LAB.DWM Deleted by Reflex Group UACOM 28 FIRST MORNING SPECIMENS GENERALLY CONTAIN THE HIGHEST CONCENTRATION OF HCG AND ARE RECOMMENDED FOR EARLY DETECTION OF . 29 05/24/13 LAB.EMM1 Deleted by Reflex Group UACOM 30 POSSIBLE UROGENITAL CONTAMINATION. 31 RUN DATE: 05/26/13 [facility] LAB LIVE PAGE 1 RUN TIME: 1025 [address] [place], [place] [address] Specimen Inquiry ----- Name: BERNARD BOOTHE : [address]: Magdalena Miner Acct: [id number] Unit: [id number] AGE: 13 Location: [facility] Re05/24/13 SEX: F Status: DEP ER ----- SPEC: [id number] CARLI: 05/24/13-1120 [facility] DR: Magdalena Paiz DO REQ: [id number] RECD: 05/24/13 STATUS: CRAIG ROCHE DR: NEEL Cazares MD _ SOURCE: URINE [facility]: ORDERED: Urine Culture ----- Procedure Result Verified Site ----- Urine Culture Final 05/26/13-1024 ML Organism 1 NORMAL CHARAN [place] Count 10-25,000 (Moderate) CFU/ML ----- END OF REPORT * ML=Testing performed at Main Lab DEPARTMENT OF PATHOLOGY, [address] [place] [address] Teto Gabriel M.D. Director [facility] Permit # [id number] Procedures Date CPT Code Description Status 02/01/2014 58193 Laparoscopy, surgical, appendectomy Completed 02/01/2014 20401 Anesthesia, Lower Abdomen Surgery Not Otherwise Spec Completed 12/09/2013 00497 Anesthesia, Intraoral Surgery Not Otherwise Spec Completed Encounters Type Date Location Provider CPT E/M Dx Office Visit 04/17/2018 10:00[place] [address] R10.9 R19.4 R11.2 R12 Office Visit 02/01/2014 5:27p [place] [address] 540.9 Plan of Care Future Appointment(s):05/15/2018 1:00 pm - Rehan Hodge MD at GI04/17/2018 - Rehan Hodge MDR10.9 Unspecified abdominal painNew Medication:Dicyclomine HCL 10 mgNew Labs:Porphobilinogen,QN,Random UrinC1 Esterase Inhibitor FunctionC1 Esterase InhibitorComplement C4, SerumNew Xrays:CT, Abdomen & Pelvis W ContrastComments:Her non-enhanced CT scan was equivocal - possible adhesions related to prior exploratory laparascopywith appendectomy and with recurrent UTIs - ? [employer] issuesReferral to Dr Castro up:F/U in 1 [id number] Change in bowel habitNew Labs:Sedimentation RateCeliac Disease Comp AB ProfileTSH Reflex FT4 And/Or HU0Setjc CultureOva & Parasite Antigen ScreenFecal Fat, QualitativeStool Elastase PancreaticC-Reactive Protein,QuantC. Difficile Toxin B By PCRLactoferrin5-Hiaa,Quant 24 HR UrineComments:Probiotics and Metamucil recommended to the pt Colonoscopy will be [id number] Nausea with vomiting, unspecifiedNew Medication:Omeprazole 20 mgR12 HeartburnComments: Omeprazole startedModified Mediterranean/Alkaline Diet d/w pt10% weight [id number] per week of walkingStop or lower coffee intakeEGD
[2018-05-15 13:48] VITALS: BP 110/80
--- NOTE | 2018-05-15 14:35 | UC ---
FLU HPI - HPI Summary HPI Summary: Pt c/o nasal congestion, cough, fever and chills X 1 day. Pt was seen in [facility] ER last night for c/o nausea and vomiting and given dx of "stomach bug" and given RX for zofran. Pt states that at midnight she began coughing, fever, and malaise. - History of Current Complaint Chief Complaint: UCRespiratory Stated Complaint: COUGH WITH RIB PAIN Time Seen by Provider: 05/15/18 13:47 Hx Obtained From: Patient Hx Last Menstrual Period: 04/30/18 ?: No Onset/Duration: Sudden Onset, Lasting Hours Severity Currently: Moderate Severity Initially: Moderate Pain Intensity: 7 Associated Signs & Symptoms: Positive: Fever, Cough, Nasal Congestion Related Hx: Possible Flu/Infectious Exposure - Risk Factors Influenza Risk Factors: Negative - Allergy/Home Medications Allergies/Adverse Reactions: Allergies Allergy/AdvReac Type Severity Reaction Status Date / Time No Known Allergies Allergy Verified 05/15/18 13:41 Home Medications: Home Medications Ibuprofen TAB* [Advil TAB*] 200 mg PO Q6H PRN 05/15/18 [History Confirmed ] Ondansetron TAB* [Zofran 4 MG Tab*] 4 mg PO Q6H PRN 05/15/18 [History Confirmed 05/15/18] PMH/Surg Hx/FS Hx/Imm Hx Previously Healthy: Yes Other History Of: Negative For: HIV, Hepatitis B, Hepatitis C - Surgical History Surgical History: Yes Surgery Procedure, Year, and Place: TONSILLECTOMY -NOVEMBER 2013. APPENDECTOMY 02/01 - Family History Known Family History: Positive: Hypertension, Diabetes - Social History Occupation: Works From/At Home Lives: With Family Alcohol Use: None Substance Use Type: None Smoking Status (MU): Never Smoked Tobacco Type: Smokeless Tobacco Amount Used/How Often: daily usage Length of Time of Smoking/Using Tobacco: started at age 14 Have You Smoked in the Last Year: No When Did the Patient Quit Smoking/Using Tobacco: quit chewing tabacco Household Exposure Type: Cigarettes - Immunization History Most Recent Tetanus Shot: UTD Vaccination Up to Date: Yes Review of Systems Constitutional: Fever, Chills, Fatigue Skin: Negative Eyes: Negative ENT: Nasal Discharge Respiratory: Cough Cardiovascular: Negative Gastrointestinal: Negative Genitourinary: Negative Motor: Negative Neurovascular: Negative Musculoskeletal: Myalgia Neurological: Negative Psychological: Negative Is Patient Immunocompromised?: No All Other Systems Reviewed And Are Negative: Yes Physical Exam Triage Information Reviewed: Yes Appearance: Well-Appearing Vital Signs: Initial Vital Signs Temp 98.3 F 05/15/18 13:42 Pulse 100 05/15/18 13:42 Resp 16 05/15/18 13:42 BP 110/80 05/15/18 13:42 Pulse Ox 99 05/15/18 13:42 Vital Signs Reviewed: Yes Eye Exam: Normal ENT: Positive: Nasal congestion Dental Exam: Normal Neck exam: Normal Respiratory Exam: Normal Cardiovascular Exam: Normal Musculoskeletal Exam: Normal Neurological Exam: Normal Psychological Exam: Normal Skin Exam: Normal Diagnostics - Laboratory Diagnostic Studies Completed/Ordered: rapid flu: negative Flu Course/Dx - Differential Dx/Diagnosis Differential Diagnosis/HQI/PQRI: Bronchitis, Influenza, Upper Respiratory Infection Provider Diagnoses: Viral syndrome Discharge - Sign-Out/Discharge Documenting (check all that apply): Patient Departure All imaging exams completed and their final reports reviewed: No Studies - Discharge Plan Condition: Stable Disposition: HOME Patient Education Materials: Viral Syndrome (ED) Referrals: Jody Mena MD [Primary Care Provider] - If Needed - Billing Disposition and Condition Condition: STABLE Disposition: Home - Attestation Statements Provider Attestation: I was available for consult. This patient was seen by the KELLY. The patient was not presented to, seen by, or examined by me. -Luann
== END 2018-05-15 14:41 | disposition home or self-care (01) ==
LOC: UCCORT 11:56
DX: B34.9 Viral infection, unspecified (principal); F17.220 Nicotine dependence, chewing tobacco, uncomplicated
CPT/HCPCS: 99211; G0463

== ENCOUNTER 2018-06-30 10:34 | Emergency (ER) | payer OTHER ==
[2018-06-30 10:52] VITALS: BP 134/65
--- NOTE | 2018-06-30 11:18 | UC ---
Dizzy HPI HPI Summary: dizziness x 1 day woke up this morning with sever dizziness worse with any movements / head rotation , walking better with rest no could sx, no ear pain ,no n/v , no headaches, no photophobia - History Of Current Complaint Chief Complaint: UCDizziness Stated Complaint: DIZZY SPELLS Time Seen by Provider: 06/30/18 10:50 Hx Obtained From: Patient Hx Last Menstrual Period: "last month" ?: No Onset/Duration: Sudden Onset, Lasting Days - 1, Still Present Timing: Constant Severity Initially: Severe Severity Currently: Severe Pain Intensity: 0 Character: Dizzy Aggravating Factor(s): Exertion, Position Change, Supine To Erect, Change In Head Position Alleviating Factor(s): Rest Associated Signs And Symptoms: Negative: Nausea, Vomiting, Diaphoresis, Tinnitus , Chest Pain, SOB, Palpitations, Unsteady Gait, Visual Changes, Decreased Oral Intake, Change In Medication, Change In Diet, OTC Medications - Allergies/Home Medications Allergies/Adverse Reactions: Allergies Allergy/AdvReac Type Severity Reaction Status Date / Time amoxicillin Allergy Hives Verified 06/30/18 10:47 PMH/Surg Hx/FS Hx/Imm Hx - Additional Past Medical History Additional PMH: Anxiety, Bipolar, Cellulitis Hospitalization 2014, Depression Psychological History: Anxiety, Depression, Bipolar Disorder Other History Of: Negative For: HIV, Hepatitis B, Hepatitis C - Surgical History Surgical History: Yes Surgery Procedure, Year, and Place: Appendectomy, [place]; [place]onsillectomy , [place] - Family History Known Family History: Positive: None, Hypertension, Diabetes - Social History Alcohol Use: None Substance Use Type: None Smoking Status (MU): Former Smoker Type: Smokeless Tobacco Amount Used/How Often: daily usage Length of Time of Smoking/Using Tobacco: Daily Use x 4 Years Have You Smoked in the Last Year: No When Did the Patient Quit Smoking/Using Tobacco: 2018 Household Exposure Type: Cigarettes - Immunization History Most Recent Tetanus Shot: UTD Vaccination Up to Date: Yes Review of Systems Constitutional: Negative Skin: Negative Eyes: Negative ENT: Negative Respiratory: Negative Genitourinary: Negative Is Patient Immunocompromised?: No All Other Systems Reviewed And Are Negative: Yes Physical Exam Triage Information Reviewed: Yes Appearance: Well-Appearing, No Pain Distress, Well-Nourished Vital Signs: Initial Vital Signs Temp 97.3 F 11/06/18 10:46 Pulse 101 06/30/18 10:46 Resp 18 06/30/18 10:46 BP 134/65 06/30/18 10:46 Pulse Ox 100 06/30/18 10:46 Vital Signs Reviewed: Yes Eye Exam: Normal Eyes: Positive: Conjunctiva Clear ENT: Positive: Normal ENT inspection, Hearing grossly normal, Pharynx normal Neck: Positive: Supple, Nontender, No Lymphadenopathy Respiratory: Positive: Chest non-tender, Lungs clear, Normal breath sounds Cardiovascular: Positive: RRR, No Murmur, Pulses Normal Musculoskeletal: Positive: Strength Intact, ROM Intact Neurological: Positive: Alert Skin Exam: Normal UC Physical Exam Vital Signs On Initial Exam: Initial Vitals Temp Pulse Resp BP Pulse Ox 97.3 F 101 18 134/65 100 06/30/18 10:46 06/30/18 10:46 06/30/18 10:46 06/30/18 10:46 06/30/18 10:46 - Neurological Exam Neurological: Sensory/Motor Intact, Alert, Oriented to Person Place, Time, CN Intact II-III, Normal Gait, Speech Normal Dizzy Course/Dx - Differential Dx/Diagnosis Provider Diagnoses: vertigo Discharge - Sign-Out/Discharge Documenting (check all that apply): Patient Departure All imaging exams completed and their final reports reviewed: No Studies - Discharge Plan Condition: Stable Disposition: HOME Prescriptions: Meclizine HCl [Motion Sickness II] 25 mg PO TID PRN #15 tablet PRN Reason: Dizziness Patient Education Materials: Vertigo (DC) Referrals: Jody Mena MD [Primary Care Provider] - 5 Days - Billing Disposition and Condition Condition: STABLE Disposition: Home
== END 2018-06-30 11:24 | disposition home or self-care (01) ==
LOC: UCCORT 10:34
DX: R42 Dizziness and giddiness (principal); Z87.891 Personal history of nicotine dependence; Z88.1 Allergy status to other antibiotic agents
CPT/HCPCS: 99212; G0463

== ENCOUNTER 2018-07-24 12:43 | Emergency (ER) | payer OTHER ==
--- OUTSIDE RECORDS SUMMARY | 2018-07-24 13:02 | XMS REPORT ---
:2000 External Reference #:[id number] Author Organization [facility] 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 Active Onset: 07/21/2018 Urinary tract infectious disease Gregor Cerda M.D. 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 No Active Unknown Medications 2017 - 2017 Omeprazole Hx Capsules 20mg 90caps 1 tab by R11.2 Rehan Hodge 2018 - DR brenda BROWN every day 2018 every morning Dicyclomine HCL 04/17/ Hx Capsules 10mg 30caps 1 cap by R10.9 Camelia Moe - brenda BROWN three 2018 times a day as needed Depo-Provera / Hx 1 dose im Unknown Contraceptive 0000 - x once q month 2017 Ranitidine 150 / Hx Tablets 150mg 1 by Unknown Maximum Strength 0000 - mouth bid 2017 Ondansetron HCL / Hx Tablets 8mg take 1 Unknown 0000 - tablet by 2017 every 8 hours as needed for nausea Lamotrigine ER / Hx Tablets ER 200mg 1 po Unknown 0000 - 24HR daily 2017 Benzamycin / Hx Gel 5-3% A/D Unknown 0000 - 2017 Vital Signs Date Vital Result Comment 07/21/2018 BP Systolic 112 mmHg BP Diastolic 55 mmHg Body Temperature 98.4 F Heart Rate 100 /min Respiratory Rate 16 /min Height 59 inches 4'11" Weight 195.38 lb BMI (Body Mass Index) 39.5 kg/m2 BSA (Body Surface Area) 1.83 m2 [place] body weight in kilograms 45 O2 % BldC Oximetry 100 % Pain Level 6 Low back pain 06/23/2018 BP Systolic 139 mmHg BP Diastolic 85 mmHg Heart Rate 101 /min Respiratory Rate 17 /min Height 59 inches 4'11" Weight 194.00 lb BMI (Body Mass Index) 39.2 kg/m2 BSA (Body Surface Area) 1.82 m2 [employer] [place] body weight in kilograms 45 05/27/2018 BP Systolic 131 mmHg BP Diastolic 83 mmHg Heart Rate 96 /min Respiratory Rate 16 /min Height 59 inches 4'11" Weight 191.00 lb BMI (Body Mass Index) 38.6 kg/m2 BSA (Body Surface Area) 1.81 m2 [place] body weight in kilograms 45 O2 % BldC Oximetry 96 % 04/17/2018 BP Systolic Sitting Left Arm 112 mmHg BP Diastolic Sitting Left Arm 78 mmHg Heart Rate 100 /min Respiratory Rate 16 /min Height 59 inches 4'11" Weight 188.00 lb BMI (Body Mass Index) 38.0 kg/m2 BSA (Body Surface Area) 1.80 m2 [place] body weight in kilograms 45 Results Test Date Test Result H/L Range Note Urine Dipstick 07/21/2018 Ua Color Yellow Yellow Ua Clarity Clear Clear Ua Leuko 15 High Negative Ua Nitrite Negative Negative Ua Urobilinogen 0.2 0.2 - 1.0 E.U./dL Ua Protein Negative Negative Ua PH 6.5 6.5-7.5 Ua Blood Negative Negative Ua Specific [place] 1.025 1.010-1.030 Ua Ketones Negative Negative Ua Bilirubin Negative Negative Ua Glucose Negative Negative Laboratory test finding 04/20/2018 C-Reactive Protein,Quant <pending> 1 C. Difficile Toxin B By PCR <pending> 1 Lactoferrin <pending> 1 5-Hiaa,Quant 24 HR Urine 04/20/2018 5-Hiaa, Urine 2.6 mg/L Undefined 1 5-Hiaa, Urine, 24 HR 2.3 mg/24hr 0.0-14.9 1, 2 Laboratory test finding 04/19/2018 Pancreatic Elastase (Pe-1) > 500.0 ug/g >200 3 Fecal Fat, Qualitative 04/19/2018 Fats, Neutral Normal . 4 Fats, Total Normal . 5 Laboratory test 04/19/2018 Lactoferrin, Stool < 1.00 ug/mL(g) 0.00-7.24 6 finding Quant Laboratory test 04/17/2018 Complement C4, Serum 45 mg/dL High 14-44 finding C1 Esterase Inhibitor 31 mg/dL 21-39 C1 Esterase Inhibitor Function 99 %meanno . 7 Celiac Disease Comp AB Profile 04/17/2018 Immunoglobulin A 136 mg/dL 87- 352 Antigliadin Abs, IgG 2 units 0-19 8 Antigliadin Abs, IgA 2 units 0-19 9 Endomysial IgA Antibody Negative Negative t-Transglutaminase IgA <2 U/mL 0-3 10 t-Transglutaminase IgG <2 U/mL 0-5 11 Laboratory test 04/17/2018 Porphobilinogen,QN,Random Urin 0.2 mg/L 0.0- 2.0 12 finding C-Reactive 04/17/2018 C-Reactive Protein,Quant 4.8 mg/L High <3.0 Protein,Quant Reflex add FT3? N Reflex add FT4? Y TSH Reflex FT4 And/Or FT3 04/17/2018 Thyroid Stim Hormone 2.20 uIU/mL 0.30-4.20 Reflex add FT3? N Reflex add FT4? Y Laboratory test 04/17/2018 Sedimentation Rate <pending> 1 finding Laboratory test 04/17/2018 TSH Reflex FT4 And/Or <pending> 1 finding FT3 Stool Culture 04/17/2018 Stool Culture NO ENTERIC PATHO 1, 13 <SEE NOTE> . ................ <SEE NOTE> 1, 14 Note: INCLUDES TESTING <SEE NOTE> 1, 15 . PLESIOMONAS, CAM <SEE NOTE> 1, 16 . ................ <SEE NOTE> 1, 17 . YERSINIA AND VIB <SEE NOTE> 1, 18 . SHOULD BE REQUES <SEE NOTE> 1, 19 Shiga Toxin 1 Antigen SHIGA TOXIN 1 NO <SEE NOTE> 1, 20 Shiga Toxin 2 Antigen SHIGA TOXIN 2 NO <SEE NOTE> 1, 21 Laboratory test finding 04/17/2018 Sedimentation Rate 16 mm/hr 0-20 22 Basic Metabolic Panel 04/17/2018 Glucose 73 mg/dL Low 74-106 BUN 8 mg/dL 7-18 Creatinine 0.6 mg/dL 0.6-1.3 Glom Filtration Rate, Estimate >60 mL/min >60 If >60 mL/min >60 23 BUN/Creat 13.3 ratio Sodium 138 mmol/L 136-145 Potassium 4.1 mmol/L 3.5-5.1 Chloride 107 mmol/L 98-107 Carbon Dioxide 24 mmol/L 21-32 Anion Gap 7 mEq/L Low 8-16 Calcium 8.9 mg/dL 8.5-10.1 Reflex add FT3? N Reflex add FT4? Y Ova & Parasite 04/17/2018 Cryptosporidium Specific NEGATIVE FOR CRY 24 Antigen Screen Ag <SEE NOTE> Giardia Specific Antigen NEGATIVE FOR RAIAN <SEE NOTE> , 25 Ua RFX Micro & Culture II 10/13/2017 Urine Color STRAW Yellow 26 Urine Clarity SL CLOUDY Clear 26 Urine Glucose - Dipstick NEGATIVE mg/dL Negative 26 Urine Bilirubin - Dipstick NEGATIVE Negative 26 Urine Ketone NEGATIVE mg/dL Negative 26 Urine Specific [place] 1.010 1.010-1.030 26 Urine Blood NEGATIVE Negative 26 Urine PH 7.0 6.5-7.5 26 Urine Protein - Dipstick NEGATIVE mg/dL Negative 26 Urine Urobilinogen - Dipstick 0.2 E.U./dL 0.2-1.0 26 Urine Nitrite - Dipstick NEGATIVE Negative 26 Urine Leuk Esterase SMALL Negative 26 Urine RBC NONE SEEN rbc/hpf 0-2 26 Urine WBC 0-2 wbc/hpf 0-7 26 Urine Epithelial Cells MANY /lpf None Seen 26, 27 Urine Bacteria FEW None Seen 26 Source: URINE, CLEAN CAT <SEE NOTE> 26, 28 Urine Culture 10/13/2017 Urine Culture URETHRAL CHARAN 26 Quantity > 100,000 CFU/mL 26, 29 Ua RFX Micro & Culture II 09/15/2017 Urine Color YELLOW Yellow 30 Urine Clarity CLEAR Clear 30 Urine Glucose - Dipstick NEGATIVE mg/dL Negative 30 Urine Bilirubin - Dipstick NEGATIVE Negative 30 Urine Ketone NEGATIVE mg/dL Negative 30 Urine Specific [place] 1.010 1.010-1.030 30 Urine Blood NEGATIVE Negative 30 Urine PH 6.0 Low 6.5-7.5 30 Urine Protein - Dipstick TRACE mg/dL Negative 30 Urine Urobilinogen - Dipstick 0.2 E.U./dL 0.2-1.0 30 Urine Nitrite - Dipstick NEGATIVE Negative 30 Urine Leuk Esterase TRACE Negative 30 Urine RBC 0-2 rbc/hpf 0-2 30 Urine WBC 2-5 wbc/hpf 0-7 30 Urine Epithelial Cells MODERATE /lpf None Seen 30, 31 Urine Bacteria FEW None Seen 30 Source: URINE, CLEAN CAT <SEE NOTE> 30, 32 Genital Culture W/ Gram 09/15/2017 Gram Stain GRAM STAIN INDIC <SEE 30 , 33 Stain NOTE> Gram Stain MODERATE GR POS. <SEE NOTE> 30, 34 Gram Stain RARE WHITE BLOOD <SEE NOTE> 30, 35 Genital Culture GENITAL CHARAN 30 Urine Culture And Sensitivities 05/25/2014 Urine Culture (See Note) 36 Laboratory test finding 02/13/2014 Bas% 0.3 % [...] 30.8-34.3 Mean Platelet Volume 9.8 fL 8.9-12.4 [place] # 1.05 K/uL High 0.0-0.6 [place] % 6.6 % 4.3-13.2 Neut# 11.78 K/uL [...] test finding 02/01/2014 Appendix Inflammation See Note 37 Laboratory test finding 02/01/2014 Urine HCG (Qualitative) See Note 38 Urine Screen 02/01/2014 Urine Bilirubin - Dipstick Negative Negative Urine Blood Trace Negative Urine Clarity Clear Clear Urine Color Yellow Yellow Urine Glucose - Dipstick Negative mg/dL Negative Urine Ketone Trace mg/dL High Negative Urine Leuk Esterase Negative Negative Urine Nitrite - Dipstick Negative Negative Urine PH 6.0 Low 6.5-7.5 Urine Protein - Dipstick Negative mg/dL Negative Urine Specific [place] 1.020 1.010-1.030 Urine Urobilinogen - Dipstick 0.2 E.U./dL 0.2-1.0 Chlamydia/GC Maria L, Urine 02/01/2014 Chlamydia Trachomatis,Ur Negative Negative -Maria L Neisseria Gonorrhoeae,Ur -Maria L Negative Negative Urine note: See Note 39 Laboratory test finding 02/01/2014 Bas% 0.2 % [...] 30.8-34.3 Mean Platelet Volume 10.9 fL 8.9-12.4 [place] # 1.07 K/uL High 0.0-0.6 [place] % 6.3 % 4.3-13.2 Neut# 14.53 K/uL [...] Low 136-145 Total Protein 8.0 g/dL 6.3-8.0 Herpes Simplex PCR 11/04/2013 HSV 1 PCR Negative Negative HSV 2 PCR Negative Negative 40 Herpes Source Labia Affirm Vaginal Dna Probe 11/04/2013 Affirm Vaginal Dna Probe (See Note) 41 Urine Culture And 11/04/2013 Urine Culture (See Note) 42 Sensitivities C Trach/N Gonorr Patient <16 11/04/2013 C trachomatis Source [facility] Chlamydia trachomatis Rna Negative Negative N. gonorrhoeae Source [facility] Neisseria Gonorrhoeae Rna Negative Negative 43 Urine Screen 10/01/2013 Urine Bilirubin - Dipstick Negative Negative Urine Blood Negative Negative Urine Clarity Clear Clear Urine Color Yellow Yellow Urine Glucose - Dipstick Negative mg/dL Negative Urine Ketone Negative mg/dL Negative Urine Leuk Esterase Negative Negative Urine Nitrite - Dipstick Negative Negative Urine PH 6.0 Low 6.5-7.5 Urine Protein - Dipstick Negative mg/dL Negative Urine Specific [place] 1.020 1.010-1.030 Urine Urobilinogen - Dipstick 0.2 E.U./dL 0.2-1.0 Laboratory test finding 10/01/2013 Urine HCG (Qualitative) Negative Negative 44 Comprehensive Metabolic 07/07/2013 Alb/Glob 1.1 ratio Panel [...] - Dipstick Negative mg/dL Negative Urine Specific [place] 1.010 1.010-1.030 Urine Urobilinogen - Dipstick 0.2 E.U./dL 0.2-1.0 Laboratory test finding 07/07/2013 Amphetamines (Urine) Negative Barbiturates (Urine) Negative Benzodiazepines (Urine) Negative Cannabinoids (Urine) Negative Cocaine Metabolite (Urine) Negative Methadone (Urine) Negative Opiates (Urine) Negative Urine Cutoffs * 45 Laboratory test finding 07/07/2013 Bas% 1.1 % [...] 30.8-34.3 Mean Platelet Volume 10.2 fL 8.9-12.4 [place] # 0.71 K/uL High 0.0-0.6 [place] % 7.5 % 4.3-13.2 Neut# 4.69 K/uL 1.0-7.0 Neut% 49.6 % 28.0-68.0 Platelet Count 298 K/uL 155-360 Red Blood Count 3.95 M/uL Low 4.10-5.10 Red Cell Distri Width %CV 12.4 % 11.7-14.4 Red Cell Distri Width SD 40.9 fl 3-47 Thyroid Stim Hormone 2.30 uIU/mL 0.49-4.67 Urine HCG (Qualitative) Negative Negative 46 White Blood Count 9.5 K/uL 4.5-13.5 Laboratory test finding 05/25/2013 Culture If Indicated Comment See Note 47 Urine Culture See Note 48 Urine HCG (Qualitative) Negative Negative 49 Urine Screen See Note 50 Urinalysis With Microscopic 05/25/2013 Urine Bacteria Few [...] Urine RBC 0-2 rbc/hpf 0-7 Urine Specific [place] <=1.005 Low 1.010-1.030 Urine Urobilinogen - Dipstick 1.0 E.U./dL 0.2-1.0 Urine WBC 0-2 wbc/hpf 0-7 Laboratory test finding 05/24/2013 Urine HCG (Qualitative) Negative Negative 51 Urine Screen See Note 52 Urinalysis With Microscopic 05/24/2013 Urine Bacteria Very Few None Seen Urine Bilirubin - Dipstick Negative Negative Urine Blood Negative Negative Urine Clarity Clear Clear Urine Color Yellow Yellow Urine Epithelial Cells Moderate None Seen /lpf 53 Urine Glucose - Dipstick Negative mg/dL Negative Urine Ketone Negative mg/dL Negative Urine Leuk Esterase Small High Negative Urine Nitrite - Dipstick Negative Negative Urine PH 6.0 Low 6.5-7.5 Urine Protein - Dipstick Negative mg/dL Negative Urine RBC None Seen rbc/hpf 0-7 Urine Specific [place] 1.025 1.010-1.030 Urine Urobilinogen - Dipstick 0.2 E.U./dL 0.2-1.0 Urine WBC 0-2 wbc/hpf 0-7 Urine Culture And 05/24/2013 Urine Culture (See Note) 54 Sensitivities Urine Screen 07/28/2012 Urine Bilirubin - Negative Negative Dipstick Urine Blood Trace Negative Urine Clarity SL Cloudy Clear Urine Color Yellow Yellow Urine Glucose - Dipstick Negative mg/dL Negative Urine Ketone Negative mg/dL Negative Urine Leuk Esterase Negative Negative Urine Nitrite - Dipstick Negative Negative Urine PH 5.5 Low 6.5-7.5 Urine Protein - Dipstick Negative mg/dL Negative Urine Specific [place] >=1.030 1.010-1.030 Urine Urobilinogen - Dipstick 0.2 E.U./dL 0.2-1.0 1 R19.4 2 This test was developed and its performance characteristics determined by [facility]. It has not been cleared or approved by the Food and Drug Administration. Performed at: [address] [id number] Optical Mechanic Apprentice: Ammon Carmen MD, Phone: [phone] INFCE Result Units: ug Elast./g Severe Pancreatic Insufficiency: <100 Moderate Pancreatic Insufficiency: 100 - 200 Normal: >200 4 Normal (<60 Droplets/HPF) 5 Normal (<100 Droplets/HPF) 6 Results verified by repeat testing Baseline (normal) 0.00 - 7.24 Elevated >7.24 An elevated result is indicative of the presence of fecal lactoferrin, a marker of intestinal inflammation. A normal result does not exclude the presence of intestinal inflammation. The test can be used as an in vitro diagnostic aid to distinguish patients with active inflammatory bowel disease (IBD) from those with non-inflammatory irritable bowel syndrome (IBS). Performed at: [address] [id number] Optical Mechanic Apprentice: Sheyla Barrera MD, Phone: [phone] Performed at: [address] [id number] Optical Mechanic Apprentice: Ammon Carmen MD, Phone: [phone] INFCE Result Units: %mean normal Abnormal <41 Equivocal 41 - 67 Normal >67 Performed at: [address] [id number] Optical Mechanic Apprentice: Sheyla Barrera MD, Phone: [phone] Performed at: [address] [id number] Optical Mechanic Apprentice: Ammon Carmen MD, Phone: [phone] Negative 0 - 19 Weak Positive 20 - 30 Moderate to Strong Positive >30 9 Negative 0 - 19 Weak Positive 20 - 30 Moderate to Strong Positive >30 10 Negative 0 - 3 Weak Positive 4 - 10 Positive >10 Tissue Transglutaminase (tTG) has been identified as the endomysial antigen. Studies have demonstr- ated that endomysial IgA antibodies have over 99% specificity for gluten sensitive enteropathy. 11 Negative 0 - 5 Weak Positive 6 - 9 Positive >9 12 This test was developed and its performance characteristics determined by [facility]. It has not been cleared or approved by the Food and Drug Administration. 13 NO ENTERIC PATHOGENS ISOLATED 14 ................................................... 15 INCLUDES TESTING FOR SALMONELLA, SHIGELLA, AEROMONAS, 16 PLESIOMONAS, CAMPYLOBACTER, AND E. COLI 0157:H7 17 ................................................... 18 YERSINIA AND VIBRIO ARE NOT ROUTINELY SCREENED FOR AND 19 SHOULD BE REQUESTED SEPARATELY 20 SHIGA TOXIN 1 NOT DETECTED 21 SHIGA TOXIN 2 NOT DETECTED Method: ImmunoCard STAT/EHEC Rapid Immunochromatographic Assay 22 Method: Sediplast Modified Westergren 23 Note: Persistent reduction for 3 months or more in an eGFR <60 mL/min/1.73 m2 defines CKD. Patients with eGFR values >/=60 mL/min/1.73 m2 may also have CKD if evidence of persistent proteinuria is present. The original MDRD equation for estimated GFR is not valid for patients less than 18 years of age. Additional information may be found at www.kdoqi.org. 24 NEGATIVE FOR CRYPTOSPORIDIUM SPECIFIC ANTIGEN 25 NEGATIVE FOR GIARDIA SPECIFIC ANTIGEN. The specimen will be held for 5 days. Additional testing may be performed upon request if the antigen tests are negative, and the patient is still symptomatic or has traveled to an endemic region. Method: Alere Quik Chek Rapid Membrane Enzyme Immunoassay 26 BABY IN DISTRESS 27 POSSIBLE UROGENITAL CONTAMINATION. 28 URINE, CLEAN CATCH 29 > 100,000 CFU/mL 30 31 WEEKS, ABD PAIN, DISCHARGE 31 POSSIBLE UROGENITAL CONTAMINATION. 32 URINE, CLEAN CATCH 33 GRAM STAIN INDICATES NORMAL GENITAL CHARAN 34 MODERATE GR POS. BACILLI SUGGESTIVE OF LACTOBACILLUS SP. 35 RARE WHITE BLOOD CELLS 36 RUN DATE: 05/27/14 [facility] LAB LIVE PAGE 1 RUN TIME: [address] [place], [place] [address] Specimen Inquiry ----- Name: BERNARD BOOTHE : [address]: Kurtis Baig MD Acct: [id number] Unit: [id number] AGE: 14 Location: [facility] Re05/25/14 SEX: F Status: DEP ER ----- SPEC: [id number] CARLI: 05/25/[address] [facility] [address]: Kurtis Baig MD REQ: [id number] RECD: 05/25/14 STATUS: CRAIG ROCHE DR: Patricia Cazares MD _ SOURCE: URINE SPDESC: ORDERED: Urine Culture ----- Procedure Result Verified Site ----- Urine Culture Final 05/27/14-1031 ML Organism 1 NORMAL CHARAN [place] Count 1-10,000 (Few) CFU/ML ----- END OF REPORT * ML=Testing performed at Main Lab DEPARTMENT OF PATHOLOGY, [address] [place] [address] Teto Gabriel M.D. Director [facility] # [id number] 37 OPERATION/PROCEDURE Lap. appendectomy DIAGNOSIS: FINAL REPORT, INTERNAL REVIEW COMPLETED "APPENDIX, APPENDECTOMY": ACUTE APPENDICITIS, EARLY. ALYSSA/josh GROSS Received in formalin labeled, "APPENDIX" is [...] seen. Submitted in toto in one block. Deven MICROSCOPIC Sections reveal sheets of luminal neutrophils focally eroding into the epithelium of the terminal appendix, without evidence of perforation. Lymphoid follicles are hypertrophied. The serosal vessels are congested without an exudate. PRE OPERATIVE DIAGNOSIS [facility] pain REVIEW CODE CODE: I Signed Electronically signed REJI LEMUS MD [id number] Electronically signed REGGIE LUBIN MD 02/06/14 1225 38 02/01/14 LAB.TOW PER [facility] REQ 39 Acceptable specimens for this test are male urethral swab, endocervical swab and liquid based pap specimens, vaginal swabs in APTIMA transports and first void urine. See online Directory of Services for test number for rectal and pharyngeal specimens. Performed at: RN - [facility] [address] [id number] Optical Mechanic Apprentice: Sheyla Barrera MD, Phone: [phone] 40 Analyte Specific Reagent: This test was developed and its performance characteristics determined by [facility]. It has not been cleared or approved by the U.S. Food and Drug Administration. Test Performed by: [facility] - [address] [address] Imaging Clerk: Jagdish Engel III, M.D. 41 RUN DATE: 11/05/13 [facility] LAB LIVE PAGE 1 RUN TIME: [address] [place] [address] Specimen Inquiry ----- Name: BERNARD BOOTHE : [address]: Karla Triana MD Acct: [id number] Unit: [id number] AGE: 13 Location: [facility] Re11/04/13 SEX: F Status: DEP ER ----- SPEC: [id number] CARLI: 11/04/13-[address] [facility] [address]: Karla Triana MD REQ: [id number] RECD: 11/05/13 STATUS: CRAIG ROCHE DR: Patricia Cazares MD _ SOURCE: VAGINAL [...] performed at Main Lab DEPARTMENT OF PATHOLOGY, [facility] [employer] [place], [place] [address] Teto Gabriel M.D. [facility] Permit # [id number] 42 RUN DATE: 11/07/13 [facility] LAB LIVE PAGE 1 RUN TIME: 925 [facility] [place], [place] [address] Specimen Inquiry ----- Name: BERNARD BOOTHE : [address]: Karla Triana MD Acct: [id number] Unit: [id number] AGE: 13 Location: [facility] Re11/04/13 SEX: F Status: DEP ER ----- SPEC: [id number] CARLI: 11/04/13-[address]: Karla Triana MD REQ: [id number] RECD: 11/05/13 STATUS: CRAIG ROCHE DR: Patricia Cazares MD _ SOURCE: URINE SPDESC: ORDERED: Urine Culture ----- Procedure Result Verified Site ----- Urine Culture Final 11/07/13-924 ML Organism 1 NORMAL CHARAN [place] Count 10-25,000 (Moderate) CFU/ML ----- END OF REPORT * ML=Testing performed at Main Lab DEPARTMENT OF PATHOLOGY, [address] [place] [address] Teto Gabriel M.D. Director [facility] Permit # [id number] 43 Test Performed by: [address] [address] Imaging Clerk: Jagdish Engel III, M.D. 44 FIRST MORNING SPECIMENS GENERALLY CONTAIN THE HIGHEST CONCENTRATION OF HCG AND ARE RECOMMENDED FOR EARLY DETECTION OF . 45 *THE SUBMITTED URINE SPECIMEN WAS SCREENED AT THE LISTED [facility] INITIAL TEST LEVEL Amphetamines 1000 ng/mL Barbiturates 200 ng/mL Benzodiazepines 200 ng/mL Cannabinoids 50 ng/mL Cocaine Metabolite 300 ng/mL Methadone 300 ng /mL Opiates 300 ng/mL 46 FIRST MORNING SPECIMENS GENERALLY CONTAIN THE HIGHEST CONCENTRATION OF HCG AND ARE RECOMMENDED FOR EARLY DETECTION OF . 47 CULTURE TO FOLLOW 48 COLONY COUNT ! 10,000 - 20,000 CFU/ml Organism 1 ! MIXED URETHRAL CHARAN 49 FIRST MORNING SPECIMENS GENERALLY CONTAIN THE HIGHEST CONCENTRATION OF HCG AND ARE RECOMMENDED FOR EARLY DETECTION OF . 50 05/25/13 LAB.DWM Deleted by Reflex Group UACOM 51 FIRST MORNING SPECIMENS GENERALLY CONTAIN THE HIGHEST CONCENTRATION OF HCG AND ARE RECOMMENDED FOR EARLY DETECTION OF . 52 05/24/13 LAB.EMM1 Deleted by Reflex Group UACOM 53 POSSIBLE UROGENITAL CONTAMINATION. 54 RUN DATE: 05/26/13 [facility] LAB LIVE PAGE 1 RUN TIME: [address] [place] [address] Specimen Inquiry ----- Name: BERNARD BOOTHE : [address]: Magdalena Miner Acct: [id number] Unit: [id number] AGE: 13 Location: [facility] Re05/24/13 SEX: F Status: DEP ER ----- SPEC: [id number] CARLI: 05/24/13-[address] [facility] [address]: Magdalena Paiz DO REQ: [id number] RECD: 05/24/13 STATUS: CRAIG ROCHE DR: NEEL Cazares MD _ SOURCE: URINE SPDESC: ORDERED: Urine Culture ----- Procedure Result Verified Site ----- Urine Culture Final 05/26/13-1024 ML Organism 1 NORMAL CHARAN [place] Count 10-25,000 (Moderate) CFU/ML ----- END OF REPORT * ML=Testing performed at Main Lab DEPARTMENT OF PATHOLOGY, [address] [place] [address] Teto Gabriel M.D. Director [facility] Permit # [id number] Procedures Date CPT Code Description Status 02/01/2014 48713 Laparoscopy, surgical, appendectomy Completed 02/01/2014 84468 Anesthesia, Lower Abdomen Surgery Not Otherwise Spec Completed 12/09/2013 57820 Anesthesia, Intraoral Surgery Not Otherwise Spec Completed Encounters Type Date Location Provider CPT E/M Dx Office Visit 06/23/2018 9:45a Surgical Office Thomas Harry MD,FACS 63966 R10.9 Office Visit 05/27/2018 10:00a Surgical Office Thomas Harry MD,FACS 38655 R10.9 Office Visit 04/17/2018 10:00[place] [address] R10.9 R19.4 R11.2 R12 Office Visit 02/01/2014 5:27p [place] [address] 540.9 Plan of Care 07/21/2018 - Gregor Cerda M.D.N39.0 Urinary tract infection, site not specifiedComments:Patient feels like she has UTI symptoms I will check her urine again today. She does have a UTI we'll treat her with antibiotics. Given patient's bowel pattern I recommended that she follows up with gastroenterology as she could have IBS.N39.3 Stress incontinence (female) (male) Comments:Discussed options of management with the patient. I recommend that she goes with this andwe'll reassess her after her delivery.Patient to follow-up with me in 1 year. I told her if she hasUTI symptoms she could always drop a urine sample so we could test for her.
[2018-07-24 13:13] VITALS: BP 139/72
[2018-07-24] MEDS ORDERED: Acetaminophen TAB* 325 MG PO ONE (13:21)
--- NOTE | 2018-07-24 13:23 | ED ---
Throat Pain/Nasal Congestion - HPI Summary HPI Summary: 18 yr old female with the complaint of runny nose, sore throat, cough, myalgias , headahce. Onset all since this morning. She just left work early due to being ill. Denies NVD. Denies urinary symptoms. She is 8 weeks . No other complaints. - History of Current Complaint Chief Complaint: UCGeneralIllness Time Seen by Provider: 07/24/18 13:14 - Allergies/Home Medications Allergies/Adverse Reactions: Allergies Allergy/AdvReac Type Severity Reaction Status Date / Time amoxicillin Allergy Hives Verified 07/24/18 13:08 Home Medications: Home Medications Pnv No.121/Iron/Folic Acid [ Multivitamin Tablet] 1 each PO DAILY [History Confirmed 07/24/18] PMH/Surg Hx/FS Hx/Imm Hx Endocrine/Hematology History: Reports: Hx Diabetes - gestational Denies: Hx Thyroid Disease Cardiovascular History: Reports: Hx Hypertension Denies: Hx Congestive Heart Failure, Hx Deep Vein Thrombosis, Hx Myocardial Infarction, Hx Pacemaker/ICD Respiratory History: Denies: Hx Asthma, Hx Chronic Obstructive Pulmonary Disease (COPD), Hx Lung Cancer GI History: Denies: Hx Gall Bladder Disease, Hx Gastrointestinal Bleed, Hx Ulcer, Hx Urosepsis History: Denies: Hx Kidney Stones, Hx Renal Disease Neurological History: Denies: Hx Dementia, Hx Migraine, Hx Seizures, Hx Transient Ischemic Attacks (TIA) Psychiatric History: Reports: Hx Anxiety - no treatment---states this was last year when she was bullied at school and, Hx Depression - denies SI/HI/SIB Denies: Hx Schizophrenia, Hx Bipolar Disorder - Surgical History Surgery Procedure, Year, and Place: Appendectomy, [place]; Tonsillectomy , 2013, [place] Infectious Disease History: Yes Infectious Disease History: Reports: 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, 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 Denies: Hx Clostridium Difficile, Hx Hepatitis, Hx Human Immunodeficiency Virus (HIV), Hx Shingles, Hx Tuberculosis, Hx Known/Suspected VRE, Hx Known/ Suspected VRSA, History Other Infectious Disease, Traveled Outside the in Last 30 Days - Family History Known Family History: Positive: None, Hypertension, Diabetes - Social History Alcohol Use: None Substance Use Type: Reports: None Smoking Status (MU): Former Smoker Type: Smokeless Tobacco Amount Used/How Often: daily usage Length of Time of Smoking/Using Tobacco: Daily Use x 4 Years Have You Smoked in the Last Year: No Review of Systems Positive: Chills Positive: Sore Throat, Nasal Discharge Positive: Cough Positive: Myalgia All Other Systems Reviewed And Are Negative: Yes Physical Exam Triage Information Reviewed: Yes Vital Signs On Initial Exam: Initial Vitals Temp Pulse Resp BP Pulse Ox 97.5 F 107 16 139/72 100 07/24/18 13:08 07/24/18 13:08 07/24/18 13:08 07/24/18 13:08 07/24/18 13:08 Vital Signs Reviewed: Yes Appearance: Positive: Well-Appearing, No Pain Distress Skin: Positive: Warm, Skin Color Reflects Adequate Perfusion Head/Face: Positive: Normal Head/Face Inspection Eyes: Positive: EOMI ENT: Positive: Pharyngeal erythema, Nasal congestion, Nasal drainage, TMs normal Neck: Positive: Nontender Respiratory/Lung Sounds: Positive: Clear to Auscultation, Breath Sounds Present Cardiovascular: Positive: RRR. Negative: Murmur Abdomen Description: Positive: Nontender Musculoskeletal: Positive: Strength/ROM Intact Neurological: Positive: Sensory/Motor Intact, Alert, Oriented to Person Place, Time, CN Intact II-III, Normal Gait, Speech Normal Psychiatric: Positive: Normal Diagnostics - Vital Signs Vital Signs Temp Pulse Resp BP Pulse Ox 07/24/18 13:08 97.5 F 107 16 139/72 100 - Laboratory Lab Statement: Any lab studies that have been ordered have been reviewed, and results considered in the medical decision making process. EENT Course/Dx - Course Course Of Treatment: 18 yr old with URI symptoms. Rapid flu is negative. DC home. FU with PMD and OB. - Diagnoses Provider Diagnoses: Upper respiratory infection, Elevated blood pressure reading Discharge - Sign-Out/Discharge Documenting (check all that apply): Patient Departure All imaging exams completed and their final reports reviewed: No Studies - Discharge Plan Condition: Good Disposition: HOME Patient Education Materials: Upper Respiratory Infection (ED), Hypertension (ED ) Referrals: Jody Mena MD [Primary Care Provider] - - Billing Disposition and Condition Condition: GOOD Disposition: Home
== END 2018-07-24 13:44 | disposition home or self-care (01) ==
LOC: UCCORT 12:43
DX: R03.0 Elevated blood-pressure reading, without diagnosis of hypertension (principal); J06.9 Acute upper respiratory infection, unspecified; Z88.0 Allergy status to penicillin; Z87.891 Personal history of nicotine dependence
CPT/HCPCS: 99212; A9270-GY; G0463

== ENCOUNTER 2019-05-27 10:00 | Emergency (ER) | payer OTHER ==
[2019-05-27 10:34] VITALS: BP 110/47
--- NOTE | 2019-05-27 11:01 | UC ---
Throat Pain/Nasal Marcus HPI - HPI Summary HPI Summary: sinus pain and pressure x 2 weeks, green / yellow nasal discharge, had bloody discharge today + pnd, cough , bilateral ear pressure, fever, chills, no sore throat - History of Current Complaint Chief Complaint: UCGeneralIllness Stated Complaint: COUGH CONGESTION Time Seen by Provider: 05/27/19 10:40 Hx Obtained From: Patient Hx Last Menstrual Period: 05/10/19 ?: No Onset/Duration: Gradual Onset, Lasting Weeks - 2, Still Present Severity: Moderate Pain Intensity: 6 Pain Scale Used: 0-10 Numeric Cough: Nonproductive Associated Signs & Symptoms: Positive: Sinus Discomfort, Nasal Discharge, Fever. Negative: Wheezing, Vomiting, Rash - Allergies/Home Medications Allergies/Adverse Reactions: Allergies Allergy/AdvReac Type Severity Reaction Status Date / Time amoxicillin Allergy Hives Verified 05/27/19 10:35 Home Medications: Home Medications Escitalopram Oxalate [Lexapro 10 mg] 1 tab PO DAILY 05/27/19 [History Confirmed 05/27/19] PMH/Surg Hx/FS Hx/Imm Hx Previously Healthy: Yes Other History Of: Negative For: HIV, Hepatitis B, Hepatitis C - Surgical History Surgical History: Yes Surgery Procedure, Year, and Place: Appendectomy, 2013, [place]; Tonsillectomy , 2013, [place] - Family History Known Family History: Positive: None, Hypertension, Diabetes - Social History Alcohol Use: None Substance Use Type: None Smoking Status (MU): Never Smoked Tobacco Type: Smokeless Tobacco Amount Used/How Often: daily usage Length of Time of Smoking/Using Tobacco: Daily Use x 4 Years Have You Smoked in the Last Year: No When Did the Patient Quit Smoking/Using Tobacco: 2018 Household Exposure Type: Cigarettes - Immunization History Most Recent Tetanus Shot: UTD Vaccination Up to Date: Yes Review of Systems All Other Systems Reviewed And Are Negative: Yes Constitutional: Positive: Fever, Chills, Fatigue Skin: Positive: Negative Eyes: Positive: Negative ENT: Positive: Sore Throat, Nasal Discharge, Sinus Congestion, Sinus Pain/ Tenderness Respiratory: Positive: Cough Cardiovascular: Positive: Negative Is Patient Immunocompromised?: No Physical Exam Triage Information Reviewed: Yes Appearance: Well-Appearing, No Pain Distress, Well-Nourished Vital Signs: Initial Vital Signs Temp 98.3 F 05/27/19 10:27 Pulse 93 05/27/19 10:27 Resp 18 05/27/19 10:27 BP 110/47 05/27/19 10:27 Pulse Ox 100 05/27/19 10:27 Vital Signs Reviewed: Yes Eye Exam: Normal Eyes: Positive: Conjunctiva Clear ENT: Positive: Normal ENT inspection, Hearing grossly normal, Nasal congestion, Nasal drainage, TMs normal, Sinus tenderness. Negative: TM bulging, TM dull, TM red, Tonsillar swelling, Tonsillar exudate Neck exam: Normal Neck: Positive: Supple, Nontender, No Lymphadenopathy Respiratory: Positive: Chest non-tender, Lungs clear, Normal breath sounds, No respiratory distress Cardiovascular: Positive: RRR, No Murmur, Pulses Normal Throat Pain/Nasal Course/Dx - Differential Dx/Diagnosis Provider Diagnosis: Sinusitis, acute maxillary Discharge ED - Sign-Out/Discharge Documenting (check all that apply): Patient Departure All imaging exams completed and their final reports reviewed: No Studies - Discharge Plan Condition: Stable Disposition: HOME Prescriptions: Clarithromycin TAB* [Biaxin 500 MG TAB*] 500 mg PO BID #20 tab Patient Education Materials: Sinusitis (ED) Forms: *Work Release Referrals: Jody Mena MD [Primary Care Provider] - If Needed - Billing Disposition and Condition Condition: STABLE Disposition: Home
== END 2019-05-27 10:52 | disposition home or self-care (01) ==
LOC: UCCORT 10:00
DX: J01.00 Acute maxillary sinusitis, unspecified (principal); Z88.0 Allergy status to penicillin
CPT/HCPCS: 99212; G0463

== ENCOUNTER 2019-06-20 10:44 | Emergency (ER) | payer OTHER ==
[2019-06-20 10:57] VITALS: BP 107/57
--- NOTE | 2019-06-20 11:20 | UC ---
UC General HPI - HPI Summary HPI Summary: 19 year old female presents with a sore on the right side of her chest along with sinus congestion and pain for the past four days. Denies shortness of breath, no chest pain. 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 - History of Current Complaint Chief Complaint: UCSkin Stated Complaint: SKIN CONCERN Time Seen by Provider: 06/20/19 11:13 Hx Obtained From: Patient Hx Last Menstrual Period: 06/09/19 Pain Intensity: 7 - Allergy/Home Medications Allergies/Adverse Reactions: Allergies Allergy/AdvReac Type Severity Reaction Status Date / Time amoxicillin Allergy Hives Verified 06/20/19 10:49 Home Medications: Home Medications Norgestimate-Ethinyl Estradiol [Tri-Linyah Tablet] 1 tab DAILY 06/20/19 [ History Confirmed 06/20/19] PMH/Surg Hx/FS Hx/Imm Hx Previously Healthy: Yes Other History Of: Negative For: HIV, Hepatitis B, Hepatitis C - Surgical History Surgical History: Yes Surgery Procedure, Year, and Place: Appendectomy, 2013, [place]; Tonsillectomy , 2013, [place] - Family History Known Family History: Positive: None, Hypertension, Diabetes - Social History Alcohol Use: None Substance Use Type: None Smoking Status (MU): Never Smoked Tobacco Type: Smokeless Tobacco Amount Used/How Often: daily usage Length of Time of Smoking/Using Tobacco: Daily Use x 4 Years Have You Smoked in the Last Year: No When Did the Patient Quit Smoking/Using Tobacco: 2018 Household Exposure Type: Cigarettes - Immunization History Most Recent Tetanus Shot: UTD Vaccination Up to Date: Yes Review of Systems All Other Systems Reviewed And Are Negative: Yes Constitutional: Positive: Fever, Chills, Fatigue Skin: Positive: Rash - right upper chest ENT: Positive: Sinus Congestion, Sinus Pain/Tenderness. Negative: Sore Throat Respiratory: Negative: Shortness Of Breath, Cough Cardiovascular: Positive: Negative Gastrointestinal: Positive: Negative Genitourinary: Positive: Negative Motor: Positive: Negative Neurovascular: Positive: Negative Musculoskeletal: Positive: Negative Neurological: Positive: Negative Psychological: Positive: Negative Is Patient Immunocompromised?: No Physical Exam Triage Information Reviewed: Yes Appearance: Well-Appearing Vital Signs: Initial Vital Signs Temp 97.7 F 06/20/19 10:50 Pulse 85 06/20/19 10:50 Resp 16 06/20/19 10:50 BP 107/57 06/20/19 10:50 Pulse Ox 98 06/20/19 10:50 Vital Signs Reviewed: Yes Eyes: Positive: Conjunctiva Clear ENT: Positive: Nasal congestion, Nasal drainage, TMs normal, Sinus tenderness Neck: Positive: Supple, Nontender, No Lymphadenopathy Respiratory: Positive: Lungs clear. Negative: Crackles, Rhonchi, Wheezing Cardiovascular: Positive: RRR, No Murmur Abdomen Description: Positive: Nontender, Soft Musculoskeletal Exam: Normal Neurological Exam: Normal Psychological Exam: Normal Skin: Positive: Rashes - right upper chest ulceraced skin lesion ~ 5mm with surrounding erythema. No pus nor discharge. Course/Dx - Diagnoses Provider Diagnosis: Erysipelas, Acute sinusitis Discharge ED - Sign-Out/Discharge Documenting (check all that apply): Patient Departure All imaging exams completed and their final reports reviewed: No Studies - Discharge Plan Condition: Stable Disposition: HOME Prescriptions: DOXYcycline CAP(*) [DOXYcycline 100MG CAP(*)] 100 mg PO BID 10 Days #20 cap Patient Education Materials: Cellulitis (ED), Sinusitis (ED) Forms: *Work Release Referrals: Jody Mena MD [Primary Care Provider] - Additional Instructions: Take antibiotics as prescribed and apply topical antibiotic to skin lesion. Tylenol or ibuprofen as needed for fever/pain. Follow-up with your primary care physician if your symptoms persist or worsen. - Billing Disposition and Condition Condition: STABLE Disposition: Home
== END 2019-06-20 11:38 | disposition home or self-care (01) ==
LOC: UCCORT 10:44
DX: A46 Erysipelas (principal); J01.90 Acute sinusitis, unspecified; R53.83 Other fatigue; Z88.0 Allergy status to penicillin; Z86.14 Personal history of Methicillin resistant Staphylococcus aureus infection
CPT/HCPCS: 99212; G0463

== ENCOUNTER 2019-10-05 15:06 | Emergency (ER) | payer OTHER ==
--- OUTSIDE RECORDS SUMMARY | 2019-10-05 15:19 | XMS REPORT | Continuity of Care Document ---
:2000 External Reference #:[id number] Author Name Dale Farah PA Address [address], [address] [place] [address] Care Team Providers Name Role Phone Jody Mena MD - Family Care Team Information Resawyer [phone] Medicine Janie Antonio MD - Internal Medicine Care Team Information Resawyer [phone] Problems Active Problems Provider Date Female stress incontinence Gregor Cerda M.D. Onset: 07/21/2018 Urinary tract infectious disease Gregor Cerda M.D. Onset: 07/21/2018 Heartburn Rehan Hodge MD Onset: 04/17/2018 Digestive symptom Rehan Hodge MD Onset: 04/17/2018 Abdominal pain Rehan Hodge MD Onset: 04/17/2018 Social History Type Date Description Comments Sex Unknown Smokeless Tobacco Current Smokeless Tobacco User, Uses 3 Times Daily ETOH Use Denies alcohol use Tobacco Use Start: Unknown Patient has never smoked Recreational Drug Use Denies Drug Use Smoking Status Reviewed: 09/14/19 Patient has never smoked Allergies, Adverse Reactions, Alerts Active Allergies Reaction Severity Comments Date Amoxicillin 04/08/2018 Inactive Allergies NKDA 02/02/2014 Medications Active Medications SIG Qnty Indications Ordering Date Provider Bactrim DS 1 tab by mouth twice 10tabs Gregor Cerda, 07/27/2018 a day M.D. 800-160mg Tablets Naproxen DR 1 by mouth twice a Unknown 500mg day Tablets DR Omeprazole 1 by mouth every day Unknown 20mg Capsules DR Dicyclomine HCL take two tablets Unknown when experiencing 10mg Capsules abdominal pain; twice a day as needed Immunizations Description No Information Available Vital Signs Date Vital Result Comment 09/14/2019 11:24am BP Systolic Sitting Left Arm 125 mmHg BP Diastolic Sitting Left Arm 67 mmHg Body Temperature 98.9 F Heart Rate 84 /min Respiratory Rate 16 /min Height 59 inches 4'11" Weight 188.00 lb Pain Level 7 stomach pain BMI (Body Mass Index) 38.0 kg/m2 BSA (Body Surface Area) 1.80 m2 [place] body weight in kilograms 45 kg O2 % BldC Oximetry 99 % 07/21/2018 8:51am BP Systolic 112 mmHg BP Diastolic 55 mmHg Body Temperature 98.4 F Heart Rate 100 /min Respiratory Rate 16 /min Height 59 inches 4'11" Weight 195.38 lb Pain Level 6 Low back pain BMI (Body Mass Index) 39.5 kg/m2 BSA (Body Surface Area) 1.83 m2 [place] body weight in kilograms 45 kg O2 % BldC Oximetry 100 % Results Test Acquired Date Facility Test Result H/L Range Note Laboratory test 09/14/2019 [facility] C.Difficile <pending> [address] Cytotoxin (B) [place], [place] [id number] [phone] C-Reactive Protein,Quant 4.1 mg/L High <3.0 CBC W/Automated 09/14/2019 [facility] White Blood 7.0 K/uL Normal 3.1-10.[address] Count [place], [place] [id number] [phone] Red Blood Count 4.35 M/uL Normal 3.90-5.40 Hemoglobin 12.1 gm/dL Normal 11.6-15.8 Hematocrit 38.3 % Normal 36.0-46.1 Mean Cell Volume 88.0 fl Normal 80.9-99.0 Mean Corpuscular HGB 27.8 pg Normal 25.9-32.7 Mean Corpuscular HGB Conc 31.6 g/dL Normal 30.8-34.3 Platelet Count 299 K/uL Normal 155-360 Red Cell Distri Width SD 45.9 fl Normal 36-47 Red Cell Distri Width %CV 14.4 % Normal 11.7-14.4 Mean Platelet Volume 9.8 fl Normal 8.9-12.4 Neut% 58.1 % Normal 40.4-72.8 Lymph % 33.6 % Normal 20.0-42.0 [place] % 6.6 % Normal 4.3-13.2 Eo% 0.7 % Normal 0.0-6.6 Bas% 0.6 % Normal 0.0-1.1 Immature Grans 0.4 % Normal 0.0-5.0 NRBC % 0.0 /100WBC < 10/ 100 WBC Neut# 4.06 K/uL Normal 1.8-7.0 Lymph # 2.35 K/uL Normal 1.0-4.0 [place] # 0.46 K/uL Normal 0.3-0.9 Eos # 0.05 K/uL Normal 0.0-0.5 Baso # 0.04 K/uL Normal 0.0-0.1 Immature Grans Absolute 0.03 K/uL NRBC # 0.00 K/uL Comprehensive 09/14/2019 [facility] Glucose 78 mg/dL Normal 74-106 Metabolic Panel [address] [place], [place] [id number] [phone] BUN 12 mg/dL Normal 7-18 Creatinine 0.7 mg/dL Normal 0.6-1.3 Glom Filtration Rate, Estimate >60 mL/min >60 If >60 mL/min >60 2 BUN/Creat 17.1 ratio Sodium 138 mmol/L Normal 136-145 Potassium 3.9 mmol/L Normal 3.5-5.1 Chloride 108 mmol/L High 98-107 Carbon Dioxide 27 mmol/L Normal 21-32 Anion Gap 3 mEq/L Low 8-16 Calcium 9.1 mg/dL Normal 8.5-10.1 Total Protein 8.0 g/dL Normal 6.4-8.2 Albumin 3.8 g/dL Normal 3.4-5.0 Globulin 4.2 g/dL Normal 1.9-4.3 Alb/Glob 0.9 ratio Bilirubin,Total 0.2 mg/dL Normal 0.2-1.0 Sgot/Ast 14 U/L Low 15-37 3 SGPT/Alt 24 U/L Normal 12-78 Alkaline Phosphatase 88 U/L Normal 45-117 Laboratory test 09/14/2019 [facility] Thyroid 2.46 Normal 0.30-4.[address] Stim uIU/[place] [address] Hormone [phone] Calprotectin, Fecal <pending> Sedimentation Rate 24 mm/hr Normal 2-40 4 1 R19.7 2 Note: Persistent reduction for 3 months or more in an eGFR <60 mL/min/1.73 m2 defines CKD. Patients with eGFR values >/=60 mL/min/1.73 m2 may also have CKD if evidence of persistent proteinuria is present. The original MDRD equation for estimated GFR is not valid for patients less than 18 years of age. Additional information may be found at www.kdoqi.org. 3 Values below the stated reference ranges of AST and ALT can be seen in normal populations. Clinical correlation is suggested. 4 This result was obtained with an ESR method that is not based on the standard Westergren Method. When comparing results obtained from the traditional Westergren ESR and this method it is important to refer to the reference range for each method. Method: Capillary Photometry Procedures Description No Information Available Medical Devices Description No Information Available Encounters Type Date Location Provider Dx Diagnosis Office Visit 09/14/2019 11:30a [facility] Dale Farah PA R12 Heartburn R19.7 Diarrhea, unspecified Assessments Date Code Description Provider 09/14/2019 R12 Heartburn Dale Farah PA 09/14/2019 R19.7 Diarrhea, unspecified Dale Farah PA Plan of Treatment Future Appointment(s):11/02/2019 9:00 am - Dale Farah PA at [facility] - Dale Farah, PAR12 HeartburnComments:Worsening symptoms despite [id number] treatment. We'll proceed with EGD. The procedure risksand benefits. Risks review occluded but not limited to perforation and infection or bleeding. At that [id number] Diarrhea, unspecifiedComments:We will workup her first by GI pathogens and inflammatory markers. Based on those results she willneed a colonoscopy. Functional Status Description No Information Available Mental Status Description No Information Available Referrals Description No Information Available
[2019-10-05 15:58] VITALS: BP 113/71
--- NOTE | 2019-10-05 15:59 | UC ---
Complaint Female HPI - HPI Summary HPI Summary: 19 yo female presents with low back pain. She tells me that over the last week she has been having low back pain that is worse with movement. 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 States that she cannot take tylenol or NSAIDs due to "stomach acid" as told to her by her GI doctor, thus she has not taken anything OTC for her symptoms. She is currently on clindamycin for a dental abscess that is improving. She denies radiation of pain, numbness, tingling, saddle anesthesia, loss of bowel and bladder control, or dysuria. - History Of Current Complaint Chief Complaint: UCGeneralIllness Stated Complaint: URINARY COMPLAINT,BACK PAIN Time Seen by Provider: 10/05/19 15:59 Hx Obtained From: Patient Hx Last Menstrual Period: 09/13/19 Onset/Duration: Gradual Onset Severity Initially: Moderate Severity Currently: Moderate Pain Intensity: 7 Pain Scale Used: 0-10 Numeric - Allergies/Home Medications Allergies/Adverse Reactions: Allergies Allergy/AdvReac Type Severity Reaction Status Date / Time amoxicillin Allergy Hives Verified 10/05/19 15:53 Home Medications: Home Medications Clindamycin Cap(NF) [Clindamycin Cap 300 mg Cap(NF)] 1 cap TID 10/05/19 [ History Confirmed 10/05/19] PMH/Surg Hx/FS Hx/Imm Hx - Additional Past Medical History Additional PMH: None Other History Of: Negative For: HIV, Hepatitis B, Hepatitis C - Surgical History Surgical History: Yes Surgery Procedure, Year, and Place: Appendectomy, [place]; Tonsillectomy , [place] - Family History Known Family History: Positive: Hypertension, Diabetes - Social History Lives: With Family Alcohol Use: None Substance Use Type: None Smoking Status (MU): Former Smoker Type: Smokeless Tobacco Amount Used/How Often: daily usage Length of Time of Smoking/Using Tobacco: Daily Use x 4 Years Have You Smoked in the Last Year: No When Did the Patient Quit Smoking/Using Tobacco: 2018 Household Exposure Type: Cigarettes - Immunization History Most Recent Tetanus Shot: UTD Vaccination Up to Date: Yes Review of Systems All Other Systems Reviewed And Are Negative: No Constitutional: Positive: Negative Skin: Positive: Negative Respiratory: Positive: Negative Cardiovascular: Positive: Negative Neurovascular: Positive: Negative Musculoskeletal: Positive: Other: - Back pain Neurological/Mental Status: Positive: Negative Psychological: Positive: Negative Physical Exam - Summary Physical Exam Summary: GENERAL: NAD. WDWN. No pain distress. SKIN: No rashes, sores, lesions, or open wounds. NECK: Supple. FROM. Nontender. No lymphadenopathy. CHEST: CTAB. No r/r/w. No accessory muscle use. Breathing comfortably and in no distress. CV: RRR. Pulses intact. Cap refill <2seconds MSK: TTP over lumbar paraspinal muscles. Pain with flexion and extension of spine. Positive SLR b/l for low back pain without radiation. Strength 5/5 B/L LEs including dorsiflexion and plantar flexion. FROM B/L LEs. No edema. ABDOMEN: Soft. NTTP. No distention or guarding. No CVA tenderness. Bowel sounds present NEURO: Alert. Sensations intact B/L LEs L3-S1. Reflexes intact PSYCH: Age appropriate behavior. Triage Information Reviewed: Yes Vital Signs: Initial Vital Signs Temp 98 F 10/05/19 15:54 Pulse 87 10/05/19 15:54 Resp 16 10/05/19 15:54 BP 113/71 10/05/19 15:54 Pulse Ox 100 10/05/19 15:54 Laboratory Tests 10/05/19 16:08 POC Urine Color Yellow POC Urine Clarity Clear POC Urine pH 6.0 POC Ur Specif [place] >= 1.030 POC Urine Protein Negative POC Ur Glucose (UA) Negative POC Urine Ketones Negative POC Urine Blood Negative POC Urine Nitrite Negative POC Urine Bilirubin 1+ A POC Urine Urobilinogen 0.2 POC U Leukocyte Esteras 1+ A Vital Signs Reviewed: Yes Complaint Female Dx - Course Course Of Treatment: UA as above. She is not having any UTI symptoms and is currently on clindamycin for a separate issue which should treat a UTI. I suspect her back pain is MSK in nature, thus will try her with flexeril given that she cannot take NSAIDs. Will send her urine to the lab for culture and adjust treatment if neededd. - Differential Dx/Diagnosis Provider Diagnosis: Back pain Discharge ED - Sign-Out/Discharge Documenting (check all that apply): Patient Departure All imaging exams completed and their final reports reviewed: No Studies - Discharge Plan Condition: Stable Disposition: HOME Prescriptions: Cyclobenzaprine TAB* [Flexeril 10 MG TAB*] 10 mg PO BID PRN #14 tab PRN Reason: Pain - Severe Patient Education Materials: Low Back Strain (ED), Lower Back Exercises (ED) Forms: *Work Release Referrals: Jody Mena MD [Primary Care Provider] - Additional Instructions: If you develop a fever, shortness of breath, chest pain, new or worsening symptoms - please call your PCP or go to the ED immediately. Your urine was sent to the lab for further testing. Complete your antibiotic as directed - Billing Disposition and Condition Condition: STABLE Disposition: Home
== END 2019-10-05 16:22 | disposition home or self-care (01) ==
LOC: UCCORT 15:06
DX: M54.9 Dorsalgia, unspecified (principal); Z88.0 Allergy status to penicillin; Z87.891 Personal history of nicotine dependence
CPT/HCPCS: 81003; 87077; 87086; 99212; G0463